=== PATIENT | male | born 1945 | race Caucasian/White ===

== ENCOUNTER 2020-07-17 17:55 | Inpatient (IN) | payer OTHER ==
--- NOTE | 2020-07-17 18:48 | RAD REPORT ---
EXAM DESCRIPTION: RAD - Chest Single View - 07/17/2020 6:34 pm CLINICAL HISTORY: CHEST PAIN Chest pain. COMPARISON: Chest Pa And Lat (2 Views) dated 10/28/2019; Chest Single View dated 12/02/2015 FINDINGS: Portable technique limits examination quality. The lungs are grossly clear. The heart is normal in size. No displaced fractures.Left humeral hardwar e noted. IMPRESSION: No acute intrathoracic process suspected.
[2020-07-17 18:56] LABS: Absolute Lymphocytes (CBC) 2.1 K/uL (0.7-4.9); Basophils % 0.6 % (0-1.3); Hematocrit 31.3 % (39.6-49.0); Lymphocytes % 22.9 % (15.3-44.8); MPV 8.1 fL (7.6-11.3); RBC Red Blood Cell Count 3.38 M/uL (4.33-5.43)
[2020-07-17] MEDS ORDERED: LORazepam 2 MG/ML VIAL ONE (18:59)
[2020-07-17] MEDS ORDERED: ACETAMINOPHEN 500 MG TAB ONE (19:00)
[2020-07-17] MEDS ORDERED: ASPIRIN 81 MG CHEWABLE TABLET ONE (19:00)
[2020-07-17] MEDS ORDERED: NITROGLYCERIN 0.4 MG/TAB SL ONE (19:01)
[2020-07-17] MEDS ORDERED: METOPROLOL TARTRATE 5 MG/5 ML INJ IV ONE (19:01)
[2020-07-17 19:06] LABS: Protime INR 1.09
[2020-07-17 19:22] LABS: ALT/SGPT 31 U/L (12-78); AST/SGOT 20 U/L (15-37); Albumin 3.7 g/dL (3.4-5.0); Alkaline Phosphatase 77 U/L (45-117); BUN Blood Urea Nitrogen 16 mg/dL (7-18); Bicarbonate 22 mmol/L (21-32); Bilirubin Direct < 0.1 mg/dL (0-0.2); Bilirubin Total 0.4 mg/dL (0.2-1.0); Glucose Level 159 mg/dL (74-106); Magnesium 1.7 mg/dL (1.8-2.4); NT PRO-BNP 88 pg/mL (<125); Potassium 3.6 mmol/L (3.5-5.1); Protein, Total 6.7 g/dL (6.4-8.2); Sodium Level 138 mmol/L (136-145); Troponin (Emerg Dept Use Only) < 0.02 ng/mL (0.0-0.045)
--- NOTE | 2020-07-17 19:47 | EDPHYS ---
Physician Documentation [facility] Name: Martin Santa Age: 74 yrs Sex: Male : 1945 Arrival Date: 07/17/2020 Time: 17:56 Bed 15 Private MD: Tracy Mitchell R ED Physician Bhavik Coe HPI: 07/17 18:08 This 74 yrs old Male presents to ER via Wheelchair with complaints of Chest pm1 Pain. 18:08 The patient or guardian reports chest pain that is located primarily in the mid-sternal pm1 area. Onset: 3 day(s) ago. The pain does not radiate. Associated signs and symptoms: Pertinent positives: shortness of breath. The chest pain is described as a heaviness. Duration: The patient or guardian reports a single episode, that is still ongoing, and worsening, constant chest pain for the past 3-4 days and worse the past 2-3 hours. Was 4/10 the past few days and is now 8/10. Modifying factors: The symptoms are alleviated by nothing. Patient took a nitro x 1 at home without any relief. the symptoms are aggravated by nothing. Severity of pain: in the emergency department the pain is actually worse is a 8 / 10. The patient has not recently seen a physician, the patient's primary care provider is Dr. Spivey, Orderly Dr Soni. Historical: - Allergies: 18:06 PENICILLINS; ll1 - PMHx: 18:06 Hypertension; High Cholesterol; Diabetes - NIDDM; ll1 - Immunization history:: Flu vaccine is up to date. - Social history:: Smoking status: Patient denies any tobacco usage or history of. ROS: 18:08 Constitutional: Negative for fever, chills, and weight loss. pm1 18:08 Abdomen/GI: Negative for abdominal pain, nausea, vomiting, diarrhea, and constipation, Back: Negative for injury and pain, MS/Extremity: Negative for injury and deformity, Skin: Negative for injury, rash, and discoloration. 18:08 Cardiovascular: Positive for chest pain, Negative for edema, palpitations. 18:08 Respiratory: Positive for shortness of breath, Negative for cough. 18:08 Neuro: Positive for headache, post taking nitro. Exam: 18:08 Constitutional: This is a well developed, well nourished patient who is awake, alert, pm1 and in no acute distress. Head/Face: Normocephalic, atraumatic. 18:08 Back: No spinal tenderness. No costovertebral tenderness. Full range of motion. Skin: Warm, dry with normal turgor. Normal color with no rashes, no lesions, and no evidence of cellulitis. MS/ Extremity: Pulses equal, no cyanosis. Neurovascular intact. Full, normal range of motion. 18:08 Cardiovascular: Exam negative for acute changes, Rate: normal, Rhythm: regular, Pulses: no pulse deficits are appreciated, Edema: is not appreciated. 18:08 Respiratory: Exam negative for acute changes, respiratory distress, shortness of breath, Breath sounds: are clear throughout. 18:08 Abdomen/GI: Exam negative for acute changes, Inspection: abdomen appears normal, Palpation: abdomen is soft and non-tender, in all quadrants. 18:08 Neuro: Exam negative for acute changes, Orientation: is normal, Mentation: is normal, Motor: is normal, moves all fours. Vital Signs: 18:04 BP 121 / 77; Pulse 100; Resp 20; Temp 97.8; Pulse Ox 100% on R/A; Weight 97.52 kg; ll1 Height 5 ft. 10 in. (177.80 cm); Pain 9/10; 19:00 BP 97 / 63; Pulse 81; Resp 16; Pulse Ox 100% on R/A; jb4 20:00 BP 99 / 55; Pulse 77; Resp 12; Pulse Ox 100% on R/A; jb4 21:00 BP 112 / 51; Pulse 79; Resp 16; Pulse Ox 100% on R/A; jb4 21:30 BP 118 / 60; Pulse 79; Resp 18; Pulse Ox 97% on R/A; jb4 18:04 Body Mass Index 30.85 (97.52 kg, 177.80 cm) ll1 MDM: 18:07 Patient medically screened. pm1 18:15 Data reviewed: vital signs. pm1 19:25 Counseling: I had a detailed discussion with the patient and/or guardian regarding: the pm1 historical points, exam findings, and any diagnostic results supporting the discharge/admit diagnosis, lab results, radiology results, the need for further work-up and treatment in the hospital. 19:46 Physician consultation: Eliud SIMEON was called at 19:46, was contacted at 19:46, pm1 regarding admission, patient's condition, and will see patient in ED, shortly. 07/17 18:08 Order name: Basic Metabolic Panel; Complete Time: 19:24 pm1 07/17 18:08 Order name: CBC with Diff; Complete Time: 19:19 pm1 07/17 18:08 Order name: LFT's; Complete Time: 19:24 pm1 07/17 18:08 Order name: Magnesium; Complete Time: 19:24 pm1 07/17 18:08 Order name: NT PRO-BNP; Complete Time: 19:24 pm1 07/17 18:08 Order name: PT-INR; Complete Time: 19:19 pm1 07/17 18:08 Order name: Troponin (emerg Dept Use Only); Complete Time: 19:24 pm1 07/17 18:08 Order name: XRAY Chest (1 view); Complete Time: 18:52 pm1 07/17 21:09 Order name: SARS-COV-2 RT PCR EDMS 07/17 18:08 Order name: EKG; Complete Time: 18:09 pm1 07/17 18:08 Order name: Cardiac monitoring; Complete Time: 18:25 pm1 07/17 18:08 Order name: EKG - Nurse/Tech; Complete Time: 18:25 pm1 07/17 18:08 Order name: IV Saline Lock; Complete Time: 19:06 pm1 07/17 18:08 Order name: Labs collected and sent; Complete Time: 19:06 pm1 07/17 18:08 Order name: O2 Per Protocol; Complete Time: 19:06 pm1 07/17 18:08 Order name: O2 Sat Monitoring; Complete Time: 19:06 pm1 07/17 20:32 Order name: CONS Physician Consult EDMS Administered Medications: 18:43 Drug: Ativan 0.5 mg Route: IVP; Site: right antecubital; hb 19:08 Follow up: Response: No adverse reaction hb 18:48 Drug: Nitroglycerin 0.4 mg Route: Sublingual; hb 18:48 Drug: Aspirin Chewable Tablet 324 mg Route: PO; hb 18:48 Drug: Tylenol 1000 mg Route: PO; hb 18:48 Drug: Metoprolol 5 mg Route: IVP; Site: right antecubital; hb 20:19 Not Given (Patient Refused): morphine 4 mg IVP once; RASS on ADMIN: Combtv4, Very jb4 Agttd3, Agttd2, Rstlss1, AlertClm0, Drwsy-1, Lt Sdtn-2, Mod Sdtn-3, Dp Sdtn-4, UnArsble-5 20:19 Not Given (Patient Refused): Zofran (Ondansetron) 4 mg IVP once; over 2 minutes jb4 Disposition: 07/18 06:45 Co-signature as Attending Physician, Bhavik Coe MD I agree with the assessment and dexter plan of care. Disposition: 07/17/20 19:46 Hospitalization ordered by Michael Apple for Observation. Preliminary diagnosis is Chest pain, unspecified. - Bed requested for Telemetry/MedSurg (observation). - Status is Observation. jb4 - Condition is Stable. - Problem is new. - Symptoms have improved. Signatures: Dispatcher [employer] EDWA Bhavik Coe MD MD cha Garcia, Cindy, RN RN cg Royce Kay, ASSEMBLY DETAILER ASSEMBLY DETAILER pm1 Ruby eVra RN RN Martin Smith RN RN jb4 Jones Jaquez RN RN ll1 Corrections: (The following items were deleted from the chart) 03 20:22 19:56 CORONAVIRUS+ ordered. [facility] EDWA 21:24 19:46 Hospitalization Ordered by Michael Apple for Observation. Preliminary diagnosis cg is Chest pain, unspecified. Bed requested for Telemetry/MedSurg (observation). Status is Observation. Condition is Stable. Problem is new. Symptoms have improved. pm1 22:09 21:24 07/17/2020 19:46 Hospitalization Ordered by Michael Apple for Observation. jb4 Preliminary diagnosis is Chest pain, unspecified. Bed requested for Telemetry/MedSurg (observation). Status is Observation. Condition is Stable. Problem is new. Symptoms have improved. cg
--- NOTE | 2020-07-17 19:47 | ER ---
Nurse's Notes [facility] Name: Martin Santa Age: 74 yrs Sex: Male : 1945 Arrival Date: 07/17/2020 Time: 17:56 Bed 15 Private MD: Tracy Mitchell R Diagnosis: Chest pain, unspecified Presentation: 07/17 18:04 Chief complaint: Patient states: CP with SOB for 3-4 days. + dizziness. Coronavirus ll1 screen: Client denies travel out of the [place] in the last 14 days. At this time, the client does not indicate any symptoms associated with coronavirus-19. Ebola Screen: Patient denies travel to an Ebola-affected area in the 21 days before illness onset. Initial Sepsis Screen: Does the patient meet any 2 criteria? HR > 90 bpm. No. Patient's initial sepsis screen is negative. Does the patient have a suspected source of infection? No. Patient's initial sepsis screen is negative. Risk Assessment: Do you want to hurt yourself or someone else? Patient reports no desire to harm self or others. Onset of symptoms was July 13, 2020. 18:04 Method Of Arrival: Wheelchair ll1 18:04 Acuity: ODILIA 3 ll1 Historical: - Allergies: 18:06 PENICILLINS; ll1 - PMHx: 18:06 Hypertension; High Cholesterol; Diabetes - NIDDM; ll1 - Immunization history:: Flu vaccine is up to date. - Social history:: Smoking status: Patient denies any tobacco usage or history of. Screenin:32 Abuse screen: Denies threats or abuse. Denies injuries from another. Nutritional hb screening: No deficits noted. Tuberculosis screening: No symptoms or risk factors identified. Fall Risk None identified. Assessment: 18:32 General: Appears in no apparent distress. uncomfortable, Behavior is cooperative, hb anxious, restless. Pain: Pain currently is 8 out of 10 on a pain scale. Neuro: Level of Consciousness is awake, alert, obeys commands, Oriented to person, place, time, situation. Cardiovascular: Reports chest pain, Capillary refill < 3 seconds Patient's skin is warm and dry. Respiratory: Reports shortness of breath at rest Respiratory effort is even, unlabored, Respiratory pattern is regular, symmetrical. GI: No signs and/or symptoms were reported involving the gastrointestinal system. : No signs and/or symptoms were reported regarding the genitourinary system. EENT: No signs and/or symptoms were reported regarding the EENT system. Derm: Skin is pink, warm \T\ dry. Musculoskeletal: No signs and/or symptoms reported regarding the musculoskeletal system. 19:00 Reassessment: Patient appears in no apparent distress at this time. Patient and/or jb4 family updated on plan of care and expected duration. Pain level reassessed. Patient is alert, oriented x 3, equal unlabored respirations, skin warm/dry/pink. Patient states feeling better. 20:00 Reassessment: Patient appears in no apparent distress at this time. Patient and/or jb4 family updated on plan of care and expected duration. Pain level reassessed. Patient is alert, oriented x 3, equal unlabored respirations, skin warm/dry/pink. 21:00 Reassessment: Patient appears in no apparent distress at this time. Patient and/or jb4 family updated on plan of care and expected duration. Pain level reassessed. Patient is alert, oriented x 3, equal unlabored respirations, skin warm/dry/pink. 21:36 Reassessment: Patient appears in no apparent distress at this time. Patient and/or jb4 family updated on plan of care and expected duration. Pain level reassessed. Patient is alert, oriented x 3, equal unlabored respirations, skin warm/dry/pink. Vital Signs: 18:04 BP 121 / 77; Pulse 100; Resp 20; Temp 97.8; Pulse Ox 100% on R/A; Weight 97.52 kg; ll1 Height 5 ft. 10 in. (177.80 cm); Pain 9/10; 19:00 BP 97 / 63; Pulse 81; Resp 16; Pulse Ox 100% on R/A; jb4 20:00 BP 99 / 55; Pulse 77; Resp 12; Pulse Ox 100% on R/A; jb4 21:00 BP 112 / 51; Pulse 79; Resp 16; Pulse Ox 100% on R/A; jb4 21:30 BP 118 / 60; Pulse 79; Resp 18; Pulse Ox 97% on R/A; jb4 18:04 Body Mass Index 30.85 (97.52 kg, 177.80 cm) 1 ED Course: 17:56 Patient arrived in ED. mr 17:56 Tracy Mitchell MD is Private Physician. mr 18:03 Royce Kay [facility]. pm1 18:03 Bhavik Coe MD is Attending Physician. pm1 18:05 Triage completed. ll1 18:06 Arm band placed on Patient placed in an exam room, on a stretcher. ll1 18:23 Patient has correct armband on for positive identification. Bed in low position. Call mh5 light in reach. Side rails up X 1. Pillow given. international account representative on. Pulse ox on. NIBP on. 18:24 EKG done, by ED staff, reviewed by Royce Kay NP. mh5 18:32 Patient maintains SpO2 saturation greater than 95% on room air. hb 18:34 XRAY Chest (1 view) In Process Unspecified. EDMS 18:35 Ruby Vera, RN is Primary Nurse. hb 18:46 Inserted saline lock: 20 gauge in right antecubital area, using aseptic technique. hb Blood collected. 19:46 Michael Apple is Hospitalizing Provider. pm1 22:08 No provider procedures requiring assistance completed. Patient admitted, IV remains in jb4 place. Administered Medications: 18:43 Drug: Ativan 0.5 mg Route: IVP; Site: right antecubital; hb 19:08 Follow up: Response: No adverse reaction hb 18:48 Drug: Nitroglycerin 0.4 mg Route: Sublingual; hb 18:48 Drug: Aspirin Chewable Tablet 324 mg Route: PO; hb 18:48 Drug: Tylenol 1000 mg Route: PO; hb 18:48 Drug: Metoprolol 5 mg Route: IVP; Site: right antecubital; hb 20:19 Not Given (Patient Refused): morphine 4 mg IVP once; RASS on ADMIN: Combtv4, Very jb4 Agttd3, Agttd2, Rstlss1, AlertClm0, Drwsy-1, Lt Sdtn-2, Mod Sdtn-3, Dp Sdtn-4, UnArsble-5 20:19 Not Given (Patient Refused): Zofran (Ondansetron) 4 mg IVP once; over 2 minutes jb4 Outcome: 19:46 Decision to Hospitalize by Provider. pm1 22:08 Admitted to Tele accompanied by teena via stretcher, room 428, with chart, Report jb4 called to HAILEY Le 22:08 Condition: stable 22:08 Discharge instructions given to patient, Instructed on the need for admit, Demonstrated understanding of instructions. 22:09 Patient left the ED. [email or web address] Signatures: Dispatcher [employer] Barb ChavezRoyce, BRAIDING MACHINE OPERATOR BRAIDING MACHINE OPERATOR pm1 Ruby Vera RN RN Martin Smith RN RN jb4 Abby Veronica [facility] Jones Jaquez, HAILEY RN ll1 Corrections: (The following items were deleted from the chart) 22:02 21:30 BP 118 / 60; Pulse 79bpm; Resp 18bpm; Pulse Ox 79% RA; jb4 jb4
--- NOTE | 2020-07-17 21:59 | P.HP ---
Certification for Inpatient Patient admitted to: Observation With expected LOS: <2 Midnights Patient will require the following post-hospital care: None Practitioner: I am a practitioner with admitting privileges, knowledge of patient current condition, hospital course, and medical plan of care. Services: Services provided to patient in accordance with Admission requirements found in Title 42 Section 412.3 of the Code of Federal Regulations <Eliud Garcia - Last Filed: 07/18/20 01:47> Patient History Date of Service: 07/18/20 Primary Care Provider: Dr. Mckeon Reason for admission: chest pain rule out History of Present Illness: Mr. Santa is a 74 yo male with DM, HTN, HLD, and asthma here today for 9/10 chest pain with exertion. Chest pain, described as 'all over heavy feeling', started at rest around 3pm and worsened while running errands. Chest pain was not relieved with rest. He reports palpitations, SOB, and numbness. At bedside, patient had dizziness and tunnel vision with deep breathing during exam that improved when resting. He reports he has had dizziness like this for the past few weeks when he gets up from a seated position. He denies nausea and vomiting. He said he last had chest pain like this 5-6 years ago. He had a scheduled cardiology appointment with Dr. Soni next week. Initial troponin negative, EKG without findings. CXR normal. Home medications list reviewed: No - Past Medical/Surgical History Has patient received pneumonia vaccine in the past: No Diabetic: Yes -: Diabetes-NIIDM -: hypertension -: high cholesterol -: asthma -: h/o of hemorrhoids -: hernia repair -: reconstructive surgery left humerus - Social History Smoking Status: Never smoker Alcohol use: No CD- Drugs: No Caffeine use: Yes Place of Residence: Home <Eliud Garcia - Last Filed: 07/18/20 01:47> Date of Service: 07/18/20 <kimberli olson - Last Filed: 07/18/20 16:51> Allergies Penicillins Allergy (Verified 07/18/20 00:42) Hives/Rash Home Medications: Pravastatin [Pravachol*] 60 mg PO BEDTIME 04/21/14 Albuterol Inhaler [Ventolin Inhaler] 2 puff IH Q6H PRN 07/18/20 Allopurinol 200 mg PO DAILY 07/18/20 hydroCHLOROthiazide [Hydrochlorothiazide*] 12.5 mg PO DAILY 07/18/20 Review of Systems General: Unremarkable Eyes: Unremarkable ENT: Unremarkable Respiratory: Shortness of Breath, SOB with Excertion, As per HPI Cardiovascular: Chest Pain, Palpitations, Light Headedness, As per HPI Gastrointestinal: Unremarkable Genitourinary: Unremarkable Musculoskeletal: Unremarkable Integumentary: Unremarkable Neurological: Numbness, As per HPI Lymphatics: Unremarkable <Eliud Garcia Preston - Last Filed: 07/18/20 01:47> Physical Examination - Vital Signs Temperature: 97.8 F Blood Pressure: 121/77 Pulse: 100 Respirations: 20 Pulse Ox (%): 100 - Physical Exam General: Alert, In no apparent distress, Oriented x3, Cooperative HEENT: Atraumatic, Normocephalic, PERRLA, Mucous membr. moist/pink, EOMI, Sclerae nonicteric Neck: Supple, 2+ carotid pulse no bruit, JVD not distended, No Thyromegaly, No LAD Respiratory: Clear to auscultation bilaterally, Normal air movement, Other (dizziness and tunnel vision with deep respirations, resolved with rest) Cardiovascular: No edema, Normal pulses, Regular rate/rhythm, Normal S1 S2, No gallops, No rubs, No murmurs Capillary refill: <2 Seconds Gastrointestinal: Normal bowel sounds, Soft and benign, Non-distended, No ascites, No tenderness, No masses, No rebound, No guarding Musculoskeletal: No clubbing, No swelling, No contractures, No erythema, No tenderness, No warmth Integumentary: No rashes, No breakdown, No significant lesion, No tenderness/swelling, No erythema, No warmth, No cyanosis Neurological: Normal speech, Normal strength at 5/5 x4 extr, Normal tone, Sensation intact, Cranial nerves 3-12 intact, Normal affect Lymphatics: No axilla or inguinal lymphadenopathy - Studies Laboratory Data (last 24 hrs) 07/17/20 18:39: PT 12.5, INR 1.09 07/17/20 18:39: WBC 9.10, Hgb 10.7 L, Hct 31.3 L, Plt Count 323 07/17/20 18:39: Sodium 138, Potassium 3.6, BUN 16, Creatinine 1.16, Glucose 159 H, Magnesium 1.7 L, Total Bilirubin 0.4, AST 20, ALT 31, Alkaline Phosphatase 77 <Eliud Garcia - Last Filed: 07/18/20 01:47> - Studies Laboratory Data (last 24 hrs) 07/18/20 12:07: Troponin I < 0.02 07/18/20 03:31: Troponin I < 0.02 07/17/20 18:39: PT 12.5, INR 1.09 07/17/20 18:39: WBC 9.10, Hgb 10.7 L, Hct 31.3 L, Plt Count 323 07/17/20 18:39: Sodium 138, Potassium 3.6, BUN 16, Creatinine 1.16, Glucose 159 H, Magnesium 1.7 L, Total Bilirubin 0.4, AST 20, ALT 31, Alkaline Phosphatase 77 <kimberli olson - Last Filed: 07/18/20 16:51> Assessment and Plan - Problems (Diagnosis) (1) Chest pain at rest Onset Date: 12/04/15 Current Visit: No Status: Acute Plan: received ASA, NTG and metoprolol in the ER chest pain now controlled cardiology consult placed PRN nitroglycerin and morphine as needed will trend troponins and EKG (2) Diabetes mellitus Onset Date: 12/04/15 Current Visit: No Status: Chronic Plan: mild sliding scale insulin protocol with blood glucose checks. continue to monitor. 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 (4) HTN (hypertension) Current Visit: No Status: Chronic Plan: blood pressure currently well controlled. will reconcile home medications. patient had episode of dizziness and lightheadedness during exam, will obtain orthostatic vitals and continue to monitor. fall precautions placed. Qualifiers: Hypertension type: essential hypertension Qualified Code(s): I10 - Essential (primary) hypertension Discharge Plan: Home Plan to discharge in: 24 Hours - Advance Directives Does patient have a Living Will: No Does patient have a Durable POA for Healthcare: No - Code Status/Comfort Care Code Status Assessed: Yes (full code ) Critical Care: No Time Spent Managing Pts Care (In Minutes): 70 <Eliud Garcia - Last Filed: 07/18/20 01:47> Physician Review: Patient Assessed, Agree with Above Assessment and Plan Physician Review Additional Text: Chest pain. Significant cardiac risk factors. Plan: Trend troponin Cardiology consult. <kimberli olson - Last Filed: 07/18/20 16:51>
[2020-07-17] MEDS: INSULIN -REGULAR HUMAN 50 UNIT/0.5 ML ML SQ SCH (22:12)
[2020-07-17] MEDS ORDERED: NA CHLORIDE 0.9% 250 ML IV ONE (22:12)
[2020-07-17] MEDS ORDERED: ONDANSETRON 4 MG/2 ML VIAL IV PRN (22:12)
[2020-07-17] MEDS ORDERED: NITROGLYCERIN 0.4 MG/TAB SL PRN (22:12)
[2020-07-17] MEDS ORDERED: ACETAMINOPHEN 500 MG TAB PO PRN (22:12)
[2020-07-17] MEDS ORDERED: MORPHINE 2 MG/ML SYR IV PRN (22:12)
[2020-07-17 22:57] VITALS: BMI 30.5
[2020-07-18 06:05] LABS: Urine Appearance CLEAR; Urine Bilirubin NEGATIVE (NEG); Urine Blood NEGATIVE (NEG); Urine Color YELLOW; Urine Glucose NEGATIVE (NEG); Urine Protein TRACE (NEG); Urine Specific Gravity 1.025 (1.005-1.030); Urine pH 7.5 (5.0-7.0)
[2020-07-18 06:06] LABS: Urine Microscopic Reflex ORDER UMIC
[2020-07-18 06:13] LABS: Urine Bacteria <20 /HPF (NONE SEEN); Urine RBC <5 /HPF (NONE SEEN)
[2020-07-18] MEDS: INSULIN -REGULAR HUMAN 50 UNIT/0.5 ML ML SQ SCH ×4 (07:30→21:00)
[2020-07-18] MEDS: hydroCHLOROthiazide 12.5 MG CAP PO SCH (08:18)
[2020-07-18] MEDS: allopurinoL 100 MG TAB PO SCH (08:18)
[2020-07-18] MEDS ORDERED: ENOXAPARIN 40 MG/0.4 ML SQ SCH (09:00)
--- NOTE | 2020-07-18 11:42 | CON ---
Date of Consultation: 07/18/2020 Reason For Consultation: Unstable angina. History Of Present Illness: Mr. Santa is a 74-year-old white male. Has a history of gout, diabetes , hypertension, dyslipidemia. Has had negative cardiac workup in the past as well as 2016, but he co mes in with nausea, palpitation, shortness of breath, chest pain radiating to the back and both arms with exertion. He denied PND, orthopnea, pedal edema. Has had palpitations, but no syncope. Denied any fever or chills. He has ruled out for an [place], but continues to have symptoms with minimal exerti on. Past Medical History: As stated above. Allergies: HE IS ALLERGIC TO PENICILLIN. Review of Systems: Negative. Social History: Negative. Family History: Positive for heart disease. Medications: At home include allopurinol, inhalers, hydrochlorothiazide, and Pravachol. Physical Examination: General: Appeared to be in mild distress. Sinus rhythm with occasional PACs. Vital Signs: His vital signs were otherwise stable. He was afebrile. HEENT: Negative. Neck: Supple with no bruit. Chest: Clear to auscultation and percussion. Cardiac: Revealed a regular rhythm and rate. No murmurs, gallops, or rubs. Abdomen: Benign. Extremities: Revealed no clubbing, cyanosis, or edema. Diagnostic Data: Fairly unremarkable. Impression And Plan: The patient with hypertension, diabetes, dyslipidemia, symptoms of chest pain c onsistent with unstable angina. I am concerned that his palpitations may be secondary to atrial fibr illation. We may have to investigate that later. I think he needs to have a heart catheterization t o define his coronary anatomy. We will see what that shows before making any further decisions. Dep ending what the echo shows, he may need an event monitor and he may need an echocardiogram on his own . I would hold his Lovenox for tonight and plan for a heart catheterization on 07/19/2020. The brian ent understands the risks and the benefits of the procedure and he agreed to proceed. DEBRA/ANTONIO Voice ID: [id number] Report ID: [id number]
[2020-07-18] MEDS: ALBUTEROL INHALER 60 PUFF/8 GM IH PRN ×2 (12:39→19:59)
--- NOTE | 2020-07-18 16:56 | P.PN ---
Subjective Date of Service: 07/18/20 Primary Care Provider: Dr. Mckeon Chief Complaint: chest pain rule out Patient complaining of intermittent chest pressure. Troponin trended negative. Physical Examination - Vital Signs Temperature: 98.1 F Blood Pressure: 135/69 Pulse: 97 Respirations: 18 Pulse Ox (%): 99 - Physical Exam General: Alert, In no apparent distress, Oriented x3 HEENT: Mucous membr. moist/pink Neck: Supple, JVD not distended Respiratory: Clear to auscultation bilaterally, Normal air movement Cardiovascular: No edema, Regular rate/rhythm, Normal S1 S2 Gastrointestinal: Normal bowel sounds, Soft and benign, Non-distended, No tenderness Musculoskeletal: No swelling, No tenderness Integumentary: No rashes Neurological: Normal strength at 5/5 x4 extr, Cranial nerves 3-12 intact - Studies Laboratory Data (last 24 hrs) 07/18/20 12:07: Troponin I < 0.02 07/18/20 03:31: Troponin I < 0.02 07/17/20 18:39: PT 12.5, INR 1.09 07/17/20 18:39: WBC 9.10, Hgb 10.7 L, Hct 31.3 L, Plt Count 323 07/17/20 18:39: Sodium 138, Potassium 3.6, BUN 16, Creatinine 1.16, Glucose 159 H, Magnesium 1.7 L, Total Bilirubin 0.4, AST 20, ALT 31, Alkaline Phosphatase 77 Assessment And Plan - Current Problems (Diagnosis) (1) Angina at rest Current Visit: Yes Status: Acute (2) Diabetes mellitus Onset Date: 12/04/15 Current Visit: No Status: Chronic Qualifiers: Diabetes mellitus type: type 2 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 Patient with angina. Troponin negative. He is scheduled for cardiac catheterization tomorrow. Aspirin, Plavix, metoprolol, lipid. NTG p.r.n. Insulin sliding scale for glucose management
[2020-07-18] MEDS: METOPROLOL TAR 25 MG TAB PO SCH (18:07)
[2020-07-18] MEDS ORDERED: ATORVASTATIN 10 MG TAB PO SCH (21:00)
[2020-07-19] MEDS ORDERED: NA CHLORIDE 0.9% 500 ML ONE ×2 (04:49→07:10)
--- NOTE | 2020-07-19 05:04 | EKG ---
Test Date: 2020-07-18 Test Time: 10:46:39 Surgical Rn: HARISH MEASUREMENT RESULTS: Intervals: Rate: 89 UT: 142 QRSD: 90 QT: 370 QTc: 450 [place]: P: 64 UT: 142 QRS: 54 T: 59 INTERPRETIVE STATEMENTS: Normal sinus rhythm Normal ECG Compared to ECG 07/17/2020 18:18:52 ST (T wave) deviation no longer present Prolonged QT interval no longer present Electronically Signed On 07-19-20 05:03:38 DISEASE EDUCATION SPECIALIST by Oscar Soni
--- NOTE | 2020-07-19 05:05 | EKG ---
Test Date: 2020-07-17 Test Time: 18:18:52 Regional Facilities Manager: ERNST MEASUREMENT RESULTS: Intervals: Rate: 97 NV: 128 QRSD: 92 QT: 388 QTc: 492 [place]: P: 36 NV: 128 QRS: 61 T: 61 INTERPRETIVE STATEMENTS: Normal sinus rhythm Nonspecific ST abnormality Prolonged QT Abnormal ECG Compared to ECG 12/03/2015 05:47:30 ST (T wave) deviation now present Prolonged QT interval now present Sinus bradycardia no longer present Electronically Signed On 07-19-20 05:03:48 SINGLE WIRE SAW OPERATOR by Oscar Soni
[2020-07-19] MEDS: METOPROLOL TAR 25 MG TAB PO SCH (05:51)
[2020-07-19 07:04] LABS: Magnesium 1.8 mg/dL (1.8-2.4); Potassium 3.5 mmol/L (3.5-5.1)
[2020-07-19] MEDS ORDERED: HEPA 1000U/500MLS 1,000 UNIT/500 ML BAG IV ONE (07:09)
[2020-07-19] MEDS ORDERED: LIDOCAINE 1% 20 ML MDV ONE (07:09)
[2020-07-19] MEDS: INSULIN -REGULAR HUMAN 50 UNIT/0.5 ML ML SQ SCH ×2 (07:30→11:30)
[2020-07-19] MEDS ORDERED: MIDAZOLAM HCL 2 MG/2 ML INJ ONE ×2 (07:39→07:46)
[2020-07-19] MEDS ORDERED: NITROGLYCERIN 100 MCG/ML SYR (for cath lab use only) IV ONE (07:40)
[2020-07-19] MEDS ORDERED: FENTANYL CITR 100 MCG/2 ML ONE (07:40)
[2020-07-19] MEDS ORDERED: NITROGLYCERIN/D5W 0 MG/0 ML BTL IV ONE (07:40)
[2020-07-19] MEDS ORDERED: ATROPINE SULF 1 MG/10 ML SYR IV ONE (07:40)
[2020-07-19] MEDS ORDERED: NA CHLORIDE 0.9% 0 ML ONE (07:40)
[2020-07-19 08:37] VITALS: O2SAT 100
[2020-07-19] MEDS ORDERED: ASPIRIN EC 81 MG TAB PO SCH (09:00)
[2020-07-19] MEDS: allopurinoL 100 MG TAB PO SCH (09:00)
[2020-07-19] MEDS ORDERED: CLOPIDOGREL 75 MG TABLET PO SCH (09:00)
--- NOTE | 2020-07-19 09:31 | OP ---
Date of Procedure: 07/19/2020 Surgeon: Oscar Soni MD Director Of Radiology: Mr. Clark. The patient will remain in the hospital for 2 hours of bedrest. We will continue his home medication . I will be happy to see him in the office in the next week or 2. I will discuss the case further w franklin Apple. Procedures: Left heart catheterization, selective coronary arteriogram, left ventriculogram, and end -diastolic pressure measurement. Indication: Unstable angina, chest pain, palpitations. Procedure In Detail: Mr. Santa was admitted on 07/18/[address] Apple's service for chest pain, t hought to be related to unstable angina, brought to the dairy laboratory technician today on 07/19/2020, prepped and dra vega in the routine sterile fashion. Given Versed for sedation. A 6-Indonesian sheath was introduced in the right common femoral artery successfully using the Seldinger technique and 10 cc of Xylocaine. A ngiography there was normal. Angio-Seal was used to close the case. Quinten catheter left and right were used to cannulate the left main and right main respectively. He had a normal left main, normal LAD, normal diagonals. There was a 40% ostial circumflex stenosis, normal obtuse marginal. A JR4 c atheter was used to cannulate the RCA that was normal, he was right dominant. The JR4 catheter was i ntroduced in the left ventricle. LV-gram was done showing ejection fraction of 65%, left ventricular end-diastolic pressure of 8 mmHg. There were no complications. Blood loss was 5 mL. The patient t olerated the procedure well. Postoperative Diagnosis: Mild coronary artery disease. Plan: Plan is for medical therapy. Anesthesia: Total conscious sedation was 45 minutes. NB/MODL Voice ID: [id number] Report ID: [id number]
[2020-07-19] MEDS: hydroCHLOROthiazide 12.5 MG CAP PO SCH (10:05)
--- NOTE | 2020-07-19 10:19 | P.DS ---
Admission Date: 07/18/20 Discharge Date: 07/19/20 Primary Care Provider: Dr. Mckeon Disposition: ROUTINE DISCHARGE Discharge Condition: FAIR Reason for Admission: chest pain rule out Consultations: Cardiology - Problems (1) Angina at rest Current Visit: Yes Status: Acute (2) Diabetes mellitus Onset Date: 12/04/15 Current Visit: No Status: Chronic Qualifiers: Diabetes mellitus type: type 2 Diabetes mellitus complication status: with circulatory complication (3) Dyslipidemia Current Visit: No Status: Chronic (4) HTN (hypertension) Current Visit: No Status: Chronic Qualifiers: Hypertension type: essential hypertension Qualified Code(s): I10 - Essential (primary) hypertension Brief History of Present Illness: 74-year-old man with a history of diabetes, and hypertension, asthma and hyperlipidemia presented to the emergency department with a complaint of chest pain worse with exertion, which progressed to chest pain at rest and associated with palpitation and shortness of breath. Patient also reported dizziness. He had a scheduled appointment Dr. Soni for the next week. His initial troponin was negative, EKG did not show any significant ischemic findings, chest x-ray showed no active disease. The patient was hospitalized for ACS rule out. Hospital Course: Troponin trended negative. Patient was seen in consultation by cardiology-Dr. Soni will performed cardiac catheterization. Patient noted to have mild coronary artery disease during cardiac catheterization. Patient placed on aspirin and metoprolol. He is on statins. Patient cleared for discharge per cardiology. Vital Signs/Physical Exam: Temp Pulse Resp BP Pulse Ox 98.0 F 69 17 135/73 100 07/19/20 08:00 07/19/20 10:05 07/19/20 08:25 07/19/20 10:05 07/19/20 08:00 General: Alert, In no apparent distress, Oriented x3 HEENT: Mucous membr. moist/pink Neck: Supple, No Thyromegaly Respiratory: Clear to auscultation bilaterally, Normal air movement Cardiovascular: No edema, Regular rate/rhythm, Normal S1 S2 Gastrointestinal: Soft and benign, Non-distended Musculoskeletal: No swelling, No tenderness Integumentary: No rashes, No erythema Neurological: Normal strength at 5/5 x4 extr, Cranial nerves 3-12 intact Laboratory Data at Discharge: WBC 9.10 K/uL (4.3-10.9) 07/17/20 18:39 Hgb 10.7 g/dL (13.6-17.9) L 07/17/20 18:39 Hct 31.3 % (39.6-49.0) L 07/17/20 18:39 Plt Count 323 K/uL (152-406) 07/17/20 18:39 PT 12.5 SECONDS (9.5-12.5) 07/17/20 18:39 INR 1.09 07/17/20 18:39 Sodium 137 mmol/L (136-145) 07/19/20 06:03 Potassium 3.5 mmol/L (3.5-5.1) 07/19/20 06:03 BUN 12 mg/dL (7-18) 07/19/20 06:03 Creatinine 0.90 mg/dL (0.55-1.3) 07/19/20 06:03 Glucose 153 mg/dL (74-106) H 07/19/20 06:03 Magnesium 1.8 mg/dL (1.8-2.4) 07/19/20 06:03 Total Bilirubin 0.4 mg/dL (0.2-1.0) 07/17/20 18:39 AST 20 U/L (15-37) 07/17/20 18:39 ALT 31 U/L (12-78) 07/17/20 18:39 Alkaline Phosphatase 77 U/L (45-117) 07/17/20 18:39 Troponin I Cancelled 07/18/20 19:31 Home Medications: Pravastatin [Pravachol*] 60 mg PO BEDTIME 04/21/14 Albuterol Inhaler [Ventolin Inhaler*] 2 puff IH Q6H PRN 07/18/20 Allopurinol 200 mg PO DAILY 07/18/20 hydroCHLOROthiazide [Hydrochlorothiazide*] 12.5 mg PO DAILY 07/18/20 Aspirin [Aspirin EC] 81 mg PO DAILY #30 tablet. 07/19/20 Metoprolol Tartrate [Lopressor*] 12.5 mg PO BID 6AM 6PM #30 tab 07/19/20 Nitroglycerin [Nitrostat*] 0.4 mg SL UD PRN #20 tab 07/19/20 New Medications: Aspirin [Aspirin EC] 81 mg PO DAILY #30 tablet. Metoprolol Tartrate [Lopressor*] 12.5 mg PO BID 6AM 6PM #30 tab Nitroglycerin [Nitrostat*] 0.4 mg SL UD PRN #20 tab PRN Reason: Pain Scale 2-4 (Mild) Followup: Oscar Soni MD [ACTIVE - CAN ADMIT] - (Within 2 weeks. Call for appointment.) Bryce Mitchell MD [Primary Care Provider] - 1-2 Weeks (Call for appointment) Time spent managing pt's care (in minutes): 33
[2020-07-19 12:08] VITALS: BP 153/77; TEMP 98.2
== END 2020-07-19 12:00 | disposition home or self-care (01) | DRG 287 ==
LOC: ER 17:55 → ERHOLD 20:28 → 4TH 22:03 → OBSVTOIN 07-18 12:28
PROVIDERS: ADMIT Internal Medicine; ATTEND Internal Medicine
PROC: 4A023N7 Measurement of Cardiac Sampling and Pressure, Left Heart, Percutaneous Approach (ICD-10-PCS; principal; 2020-07-19)
PROC: B2111ZZ Fluoroscopy of Multiple Coronary Arteries using Low Osmolar Contrast (ICD-10-PCS; 2020-07-19)
PROC: B2151ZZ Fluoroscopy of Left Heart using Low Osmolar Contrast (ICD-10-PCS; 2020-07-19)
DX: I25.110 Atherosclerotic heart disease of native coronary artery with unstable angina pectoris (principal); I10 Essential (primary) hypertension; E78.5 Hyperlipidemia, unspecified; E11.59 Type 2 diabetes mellitus with other circulatory complications; Z79.899 Other long term (current) drug therapy; Z88.0 Allergy status to penicillin; Z79.82 Long term (current) use of aspirin; Z20.822 Contact with and (suspected) exposure to COVID-19
CPT/HCPCS: 36415; 71045; 80048; 80076; 81003; 81015; 82947; 83735; 83880; 84484; 85025; 85610; 93005; 93458; 96374; 96375; 99285; C1760; C1893; G0378; J0583; J1644; J1650; J2250; J2270; J3010; J7040; J7050; U0003

== ENCOUNTER 2020-10-05 10:12 | Emergency (ER) | payer OTHER ==
[2020-10-05 10:50] LABS: Absolute Lymphocytes (CBC) 0.7 K/uL (0.7-4.9); Basophils % 0.4 % (0-1.3); Hematocrit 37.8 % (39.6-49.0); Lymphocytes % 8.9 % (15.3-44.8); MPV 8.1 fL (7.6-11.3); RBC Red Blood Cell Count 4.29 M/uL (4.33-5.43)
[2020-10-05 11:12] LABS: Albumin 3.6 g/dL (3.4-5.0); Bilirubin Direct 0.1 mg/dL (0-0.2); Bilirubin Total 0.6 mg/dL (0.2-1.0); Potassium 3.6 mmol/L (3.5-5.1); Protein, Total 7.5 g/dL (6.4-8.2)
[2020-10-05 11:14] LABS: Urine Blood 3+ (Negative); Urine Glucose Negative (Negative); Urine Protein 3+ (Negative); Urine Specific Gravity 1.025 (1.005-1.030)
[2020-10-05] MEDS ORDERED: NA CHLORIDE 0.9% 500 ML ONE (11:22)
[2020-10-05 11:26] LABS: Urine Appearance TURBID (Clear); Urine Blood 3+ (Negative); Urine Color Red (Yellow); Urine Glucose NEGATIVE (Negative); Urine Protein 3+ (Negative); Urine Specific Gravity >=1.030 (1.005-1.030)
[2020-10-05 11:30] LABS: Urine Bilirubin 2+ (Negative); Urine Microscopic Reflex ORDER UMIC
[2020-10-05 11:38] LABS: Urine Bacteria 20-50 /HPF (NONE SEEN); Urine Mucus 2+ /HPF (NONE SEEN); Urine RBC >50 /HPF (NONE SEEN)
--- NOTE | 2020-10-05 11:56 | RAD REPORT ---
EXAM DESCRIPTION: CTAbdomen Pelvis W Contrast - 10/05/2020 11:46 am CLINICAL HISTORY: Abdominal pain. hematuria;Abd pain COMPARISON: No comparisons TECHNIQUE: Biphasic CT imaging of the abdomen and pelvis was performed with 100 ml non-ionic IV cont rast. All CT scans are performed using dose optimization technique as appropriate and may include automated exposure control or mA/KV adjustment according to patient size. FINDINGS: The lung bases are clear. The liver contains a 10 mm benign cyst. The spleen, pancreas, adrenal glands and kidneys are within n ormal limits. Cholelithiasis. No bowel obstruction, free air, free fluid or abscess. Advanced diverticulosis coli of the sigmoid co peng. The appendix is normal. No evidence of significant lymphadenopathy. No suspicious bony findings. Significant thickening of the wall of the urinary bladder is seen with surrounding inflammatory stack es in the pelvic fat. IMPRESSION: Significant wall thickening and inflammation of the bladder and surrounding fat suggest urinary tract infection. Advise correlation with urinalysis. Advanced diverticulosis coli without diverticulitis. Cholelithiasis.
--- NOTE | 2020-10-05 12:03 | EDPHYS ---
Physician Documentation [facility] Name: Martin Santa Age: 75 yrs Sex: Male : 1945 Arrival Date: 10/05/2020 Time: 10:15 Bed 7 Private MD: Tracy Mitchell R ED Physician Santi Harrison HPI: 10/05 10:26 This 75 yrs old Male presents to ER via Unassigned with complaints of Urinary kdr Problem, Rectal Bleeding. Historical: - Allergies: 10:28 PENICILLINS; sv - PMHx: 10:28 Diabetes - NIDDM; Hypertension; High Cholesterol; Leaky heart valves; Asthma; Heart sv arrhythmia; CHF; - PSHx: 10:28 Hernia repair; L humerus; sv - Immunization history:: Client reports receiving the 2nd dose of the Covid vaccine, Client reports receiving the 1st dose of the Covid vaccine. - Social history:: Smoking status: Patient denies any tobacco usage or history of. ROS: 11:59 Constitutional: Negative for fever, chills, and weight loss in the last 24 hours. He kdr states that he hsa had fever earlier in the week and began to have fever and nausea but that has since resolved. Now just feels generally weak Eyes: Negative for injury, pain, redness, and discharge, ENT: Negative for injury, pain, and discharge, Neck: Negative for injury, pain, and swelling, Cardiovascular: Negative for chest pain, palpitations, and edema, Respiratory: Negative for shortness of breath, cough, wheezing, and pleuritic chest pain, Abdomen/GI: Negative for abdominal pain, nausea, vomiting, diarrhea, and constipation, Back: Negative for injury and pain, MS/Extremity: Negative for injury and deformity, Skin: Negative for injury, rash, and discoloration, Neuro: Negative for headache, weakness, numbness, tingling, and seizure activity. Psych: Negative for depression, anxiety, suicide ideation, homicidal ideation, and hallucinations, Allergy/Immunology: Negative for hives, rash, and allergies, Endocrine: Negative for neck swelling, polydipsia, polyuria, polyphagia, and marked weight changes, Hematologic/Lymphatic: Negative for swollen nodes, abnormal bleeding, and unusual bruising. 11:59 Abdomen/GI: Positive for Bleeding hemorrhoids . 11:59 : Positive for urinary symptoms, hematuria, burning with urination, difficulty urinating, Negative for injury or acute deformity, testicular pain Exam: 11:59 Constitutional: This is a well developed, well nourished patient who is awake, alert, kdr and in no acute distress. Head/Face: Normocephalic, atraumatic. Eyes: Pupils equal round and reactive to light, extra-ocular motions intact. Lids and lashes normal. Conjunctiva and sclera are non-icteric and not injected. Cornea within normal limits. Periorbital areas with no swelling, redness, or edema. Neck: Trachea midline, no thyromegaly or masses palpated, and no cervical lymphadenopathy. Supple, full range of motion without nuchal rigidity, or vertebral point tenderness. No Meningismus. Chest/axilla: Normal chest wall appearance and motion. Nontender with no deformity. No lesions are appreciated. Cardiovascular: Regular rate and rhythm with a normal S1 and S2. No gallops, murmurs, or rubs. Normal PMI, no JVD. No pulse deficits. Respiratory: Lungs have equal breath sounds bilaterally, clear to auscultation and percussion. No rales, rhonchi or wheezes noted. No increased work of breathing, no retractions or nasal flaring. Abdomen/GI: Soft, non-tender, with normal bowel sounds. No distension or tympany. No guarding or rebound. No evidence of tenderness throughout. Back: No spinal tenderness. No costovertebral tenderness. Full range of motion. Skin: Warm, dry with normal turgor. Normal color with no rashes, no lesions, and no evidence of cellulitis. MS/ Extremity: Pulses equal, no cyanosis. Neurovascular intact. Full, normal range of motion. Neuro: Awake and alert, GCS 15, oriented to person, place, time, and situation. Cranial nerves II-XII grossly intact. Motor strength 5/5 in all extremities. Sensory grossly intact. Cerebellar exam normal. Normal gait. Psych: Awake, alert, with orientation to person, place and time. Behavior, mood, and affect are within normal limits. Vital Signs: 10:25 BP 146 / 76; Pulse 112; Resp 20; Temp 97.7; Pulse Ox 100% ; Weight 99.79 kg; Height 5 sv ft. 10 in. (177.80 cm); Pain 7/10; 10:25 Body Mass Index 31.57 (99.79 kg, 177.80 cm) sv MDM: 11:59 Data reviewed: vital signs, nurses notes, lab test result(s), radiologic studies. [facility] Counseling: I had a detailed discussion with the patient and/or guardian regarding: the historical points, exam findings, and any diagnostic results supporting the discharge/admit diagnosis, lab results, radiology results, the need for outpatient follow up. 12:02 Patient medically screened. [facility] 10/05 10:25 Order name: Basic Metabolic Panel; Complete Time: : [facility] 10/05 10:25 Order name: CBC with Diff; Complete Time: : [facility] 10/05 10:25 Order name: Hepatic Function; Complete Time: : [facility] 10/05 10:25 Order name: Lipase; Complete Time: [facility] 10/05 10:25 Order name: Type And Screen; Complete Time: 11:58 [facility] 10/05 10:25 Order name: Urinalysis; Complete Time: 11: [facility] 10/05 10:25 Order name: IV Saline Lock; Complete Time: 10:59 [facility] 10/05 10:25 Order name: Urine Culture [facility] 10/05 10:53 Order name: CT Abd/Pelvis - IV Contrast Only; Complete Time: 11:58 [facility] 10/05 11:14 Order name: Urine Dipstick-Ancillary; Complete Time: : [facility] 10/05 11:37 Order name: Urine Microscopic Only; Complete Time: 11:58 [facility] 10/05 12:02 Order name: ABO/RH no charge [facility] 10/05 10:25 Order name: Labs collected and sent; Complete Time: 10:59 [facility] Administered Medications: 11:02 Drug: NS 0.9% 500 ml Route: IV; Rate: bolus; Site: right antecubital; hb 11:35 Follow up: Response: No adverse reaction; IV Status: Completed infusion; IV Intake: hb 500ml 12:50 Drug: Cipro (ciprofloxacin) 500 mg Route: PO; em 13:00 Follow up: Response: Medication administered at discharge. em Disposition: 10/05/20 12:02 Discharged to Home. Impression: Urinary tract infection, site not specified, Bladder disorders in diseases classified elsewhere, Bladder disorder, unspecified. - Condition is Stable. - Discharge Instructions: Dysuria, Urinary Tract Infection, Adult, Antibiotic Medicine, Adult. - Prescriptions for Levaquin 500 mg Oral Tablet - take 1 tablet by ORAL route once daily for 10 days; 10 tablet. Pyridium 200 mg Oral Tablet - take 1 tablet by ORAL route every 8 hours for 3 days; 9 tablet. - Medication Reconciliation Form, Thank You Letter, Antibiotic Education form. - Follow up: Tracy Mitchell MD; When: 2 - 3 days; Reason: If symptoms return, Further diagnostic work-up, Recheck today's complaints, Continuance of care, Re-evaluation by your physician. - Problem is new. - Symptoms have improved. Signatures: Dispatcher [employer] Saima Conte RN RN Santi Harrison MD MD [facility] Noel Pandey RN RN Ruby Vera RN RN Corrections: (The following items were deleted from the chart) 13:01 12:02 10/05/2020 12:02 Discharged to Home. Impression: Urinary tract infection, site em not specified; Bladder disorders in diseases classified elsewhere; Bladder disorder, unspecified. Condition is Stable. Forms are Medication Reconciliation Form, Thank You Letter, Antibiotic Education, Prescription Opioid Use. Follow up: Tracy Mitchell; When: 2 - 3 days; Reason: If symptoms return, Further diagnostic work-up, Recheck today's complaints, Continuance of care, Re-evaluation by your physician. Problem is new. Symptoms have improved. kdr
--- NOTE | 2020-10-05 12:03 | ER ---
Nurse's Notes [facility] Name: Martin Santa Age: 75 yrs Sex: Male : 1945 Arrival Date: 10/05/2020 Time: 10:15 Bed 7 Private MD: Tracy Mitchell R Diagnosis: Urinary tract infection, site not specified;Bladder disorders in diseases classified elsewhere;Bladder disorder, unspecified Presentation: 10/05 10:25 Chief complaint: Patient states: dysuria, painful urination, urinary frequency, fever sv Tmax 100.1 started Friday and hematuria started today. Also reports rectal bleeding from hemorrhoids. Coronavirus screen: Client denies travel out of the [place] in the last 14 days. At this time, the client does not indicate any symptoms associated with coronavirus-19. Ebola Screen: No symptoms or risks identified at this time. Risk Assessment: Do you want to hurt yourself or someone else? Patient reports no desire to harm self or others. Onset of symptoms was October 01, 2020. 10:25 Method Of Arrival: Wheelchair sv 10:25 Acuity: ODILIA 2 sv Triage Assessment: 10:25 General: Appears in no apparent distress. uncomfortable, Behavior is calm, cooperative, sv appropriate for age. Neuro: Level of Consciousness is awake, alert, obeys commands, Oriented to person, place, time, situation. Respiratory: Respiratory effort is even, unlabored. : Reports pain with urination, urinary frequency, hematuria, dysuria. Historical: - Allergies: 10:28 PENICILLINS; sv - PMHx: 10:28 Diabetes - NIDDM; Hypertension; High Cholesterol; Leaky heart valves; Asthma; Heart sv arrhythmia; CHF; - PSHx: 10:28 Hernia repair; L humerus; sv - Immunization history:: Client reports receiving the 2nd dose of the Covid vaccine, Client reports receiving the 1st dose of the Covid vaccine. - Social history:: Smoking status: Patient denies any tobacco usage or history of. Vital Signs: 10:25 BP 146 / 76; Pulse 112; Resp 20; Temp 97.7; Pulse Ox 100% ; Weight 99.79 kg; Height 5 sv ft. 10 in. (177.80 cm); Pain 7/10; 10:25 Body Mass Index 31.57 (99.79 kg, 177.80 cm) sv ED Course: 10:15 Patient arrived in ED. mr 10:15 Tracy Mitchell MD is Private Physician. mr 10:24 Santi Harrison MD is Attending Physician. kdr 10:27 Triage completed. sv 10:28 Arm band placed on. sv 10:35 Initial lab(s) drawn, by me, sent to lab. Inserted saline lock: 20 gauge in right kj1 antecubital area, using aseptic technique. Blood collected. 11:19 Ruby Vera, RN is Primary Nurse. hb 11:46 CT Abd/Pelvis - IV Contrast Only In Process Unspecified. EDMS 12:02 Tracy Mitchell MD is Referral Physician. kdr 13:00 No provider procedures requiring assistance completed. IV discontinued, intact, em bleeding controlled, No redness/swelling at site. Pressure dressing applied. Administered Medications: 11:02 Drug: NS 0.9% 500 ml Route: IV; Rate: bolus; Site: right antecubital; hb 11:35 Follow up: Response: No adverse reaction; IV Status: Completed infusion; IV Intake: hb 500ml 12:50 Drug: Cipro (ciprofloxacin) 500 mg Route: PO; em 13:00 Follow up: Response: Medication administered at discharge. em Intake: 11:35 IV: 500ml; Total: 500ml. hb Outcome: 12:02 Discharge ordered by . kdr 13:00 Discharged to home ambulatory. em 13:00 Condition: stable 13:00 Discharge instructions given to patient, Instructed on discharge instructions, follow up and referral plans. medication usage, Demonstrated understanding of instructions, follow-up care, medications, Prescriptions given X 2. 13:01 Patient left the ED. em Addendum: 10/08/2020 07:09 Addendum: Culture Results: Positive urine culture. No further action required. Bacteria e b sensitive to prescribed antibiotic. Signatures: Dispatcher [employer] Saima Conte RN RN Santi Harrison MD MD [facility] Barb Bailey mr PandeyNoel RN RN em Ruby Vera RN RN Jess Grey Kandis [id number]
[2020-10-05] MEDS ORDERED: CIPROFLOXACIN HCL 500 MG TAB ONE (12:56)
[2020-10-05 13:07] VITALS: BP 146/76; TEMP 97.7; O2SAT 100
== END 2020-10-05 13:01 | disposition home or self-care (01) ==
LOC: ER 10:12
DX: N39.0 Urinary tract infection, site not specified (principal); N32.9 Bladder disorder, unspecified; I10 Essential (primary) hypertension; Z88.0 Allergy status to penicillin
CPT/HCPCS: 87088; 85025; 87086; 80048; 36415; 86900; 86850; 86901; 80076; 87077; 87186; 83690; 74177; 96360; 99284; Q9967; J7040; 81003; 81015

== ENCOUNTER 2022-03-19 17:28 | Emergency (ER) | payer OTHER ==
--- OUTSIDE RECORDS SUMMARY | 2022-03-19 17:33 | XMS REPORT | Continuity of Care Document ---
:1945 Author Organization [facility] t Address [address] [place] [address] Care Team Providers Name Role Phone Ariana Bautista DO Primary Care Physician Anneliese Conrad Attending Clinician Unavailable ARIANA BAUTISTA Attending Clinician Unavailable JASE EVANS Attending Clinician Unavailable LAB90 Attending Clinician Unavailable Ariana Bautista DO Attending Clinician Payers Payer Name Policy Type Policy Number Effective Date Expiration Date S manas [employer] MEDICARE 7 [id number] 2021 [id number] GOLD 00:00:00 PLUS 2021 Problems Condition Condition Condition Status Onset Resolution Last Treating Co mments Source Name Details Category Date Date Treatment Clinician Date JADE-inhibi JADE-inhibi Disease Active 2021-05 K vicente tor cough tor cough 1-03 Seyb old 00:00: - 00 Externa l Mild Mild Disease Active Summer intermitte intermitte 8-05 Se ybold nt asthma nt asthma 00:00: - without without 00 Externa complicati complicati l on on Well adult Well adult Disease Active K vicente exam exam 5-05 Seybold 00:00: - 00 Externa l Gastroesop Gastroesop Disease Active K vicente hageal hageal 5-05 Seybold reflux reflux 00:00: - disease disease 00 Externa without without l esophagiti esophagiti s s 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 Seybold regurgitat regurgitat 00:00: - ion ion 00 Externa l Primary Primary Disease Active Summer hypertensi hypertensi 05 Se ybold on on 00:00: - 00 Externa l 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 Heart catheteri zation done Cardiolog y-Dr. Soni showed some disease but no stent required. Continue medical managemen t. 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 00:00: - 00 Externa l Allergies, Adverse Reactions, Alerts Allergy Allergy Status Severity Reaction(s) Onset Inactive Treating Comm ents Source Name Type Date Date Clinician Penicill Propensi Active Itching Kelse y ins ty to 5-05 Seybold adverse 00:00: reaction 00 s Penicill Propensi Active Itching Kelse y ins ty to 05 Seybold adverse 00:00: - reaction 00 Externa s l Social History Social Habit Start Date Stop Date Quantity Comments Source Alcohol intake 2022-03-14 2022-03-14 1 /d Summer Henson bold - 00:00:00 00:00:00 External Tobacco use and 2021-09-13 2021-09-13 Smokeless tobacco Luis jaeger Seybold - exposure 00:00:00 00:00:00 non-user External Education 2021-09-13 2021-09-13 18 Summer Schulerybold - 00:00:00 00:00:00 External Sex Ass[birth year] At 1945-08-071947-08-07 Summersixto arriaza - 00:00:00 00:00:00 External Smoking Status Start Date Stop Date Source Never smoked tobacco Summer rin old - External Medications Ordered Filled Start Stop Current Ordering Indication Dosage Frequency Signature Comments Components Source Medication Medication Date Date Medication? Clinician (SIG) Name Name Nitroglycer 2021-[address] 0.4 K elsey in 0.4 MG 1-03 mg under Seybol d sublingual 09:15: the tongue - SL Tab 12 every 5 Externa minutes as l needed for chest pain 1 to 2 tablets under the tongue at onset of attack. Repeat as needed up to 3 times. If not relieved CALL 911. Multiple 2021-05 Yes Take by Summer Vitamins-Mi 05-14 mouth Seybold nerals 09:15: - (MULTIVITAL 12 Externa OR) l Calcium 2021-05 Yes Take by Summer Polycarboph 05-14 mouth Seybold il 09:15: - (FIBER-CAPS 12 Externa OR) l Calcium 2021-05 Yes Take by Summer Carbonate-V 05-14 mouth Seybold itamin D 09:15: - 600-200 12 Externa MG-UNIT l oral Tablet Potassium 2021-05 Yes Take by Genevieve y 95 MG oral 05-14 mouth Seybold Tablet 09:15: - 12 Externa l Cyanocobala 2021-05 Yes Take by Vaibhav henson min -03 mouth Seybold (Vitamin 09:15: - B-12) 2000 12 Externa MCG oral l Tab CR Ascorbic 2021-05 Yes Take by Summer Acid 05-14 mouth Seybold (Vitamin C 09:15: - CR) 1000 MG 12 Externa oral Tab CR l Zinc 50 MG 2021-05 Yes Take by Marina ey oral - mouth Seybold Capsule 09:15: - 12 Externa l ASPIRIN 81 2021-05 Yes Take by Marina ey OR -03 mouth Seybold 09:15: - 12 Externa l Omeprazole 2021-05 Yes 40mg Take 40 mg K elsey 40 MG oral 03 by mouth Seybo ld Delayed 09:15: daily - Release 12 Externa Capsule l Losartan 2021-05 Yes [id number] 50mg Take 1 Vaibhav henson Potassium -03 tablet (50 Seyb old 50 MG oral 00:00: mg total) - Tablet 00 by mouth Externa daily l Metformin 0 Yes 500mg Take 1 Kelse y HCl 500 MG 9-25 tablet Seybold oral Tablet 00:00: (500 mg - 00 total) by Externa mouth l daily (with breakfast) Gabapentin 0 Yes 300mg Take 1 Marina ey 300 MG oral 6-28 capsule Seybo ld Capsule 00:00: (300 mg - 00 total) by Externa mouth l daily Metformin 2021-0 Yes 500mg Take 500 Vaibhav sey HCl 500 MG 5-05 mg by Seybold oral Tablet 09:59: mouth 27 daily (with breakfast) Gabapentin Yes 300mg Take 300 Ke lsey 300 MG oral 5-05 mg by Seybold Capsule 09:59: mouth 27 daily Nitroglycer Yes .4mg Place 0.4 K elsey in 5-05 mg under Seybold (Nitrostat) 09:59: the tongue 0.4 MG 27 every 5 sublingual minutes as SL Tab needed for chest pain 1 to 2 tablets under the tongue at onset of attack. Repeat as needed up to 3 times. If not relieved CALL 911. Multiple Yes Take by Summer Vitamins-Mi 5-05 mouth Seybold nerals 09:59: (MULTIVITAL 27 OR) Calcium Yes Take by Summer Polycarboph 5-05 mouth Seybold il 09:59: (FIBER-CAPS 27 OR) Calcium Yes Take by Summer Carbonate-V 5-05 mouth Seybold itamin D 09:59: (Calcium 27 600+D) 600-200 MG-UNIT oral Tablet Potassium Yes Take by Genevieve y 95 MG oral 5-05 mouth Seybold Tablet 09:59: 27 Cyanocobala Yes Take by Vaibhav schulery min 5-05 mouth Seybold (Vitamin 09:59: B-12) 2000 27 MCG oral Tab CR Ascorbic Yes Take by Summer Acid 5-05 mouth Seybold (Vitamin C 09:59: CR) 1000 MG 27 oral Tab CR Zinc 50 MG Yes Take by Marina ey oral 5-05 mouth Seybold Capsule 09:59: 27 ASPIRIN 81 Yes Take by Marina ey OR 5-05 mouth Seybold 09:59: 27 Omeprazole 0 Yes 40mg Take 40 mg K elsey 40 MG oral 5-05 by mouth Seybo ld Delayed 09:59: daily Release 27 Capsule Albuterol 0 Yes INHALE 2 Marina ey HFA 108 (90 3-31 PUFFS BY [employer] App old Base) 00:00: MOUTH FOUR MCG/ACT IN 00 TIMES AERS DAILY Atorvastati 0 Yes 40mg Take 40 mg Summer n Calcium 3-31 by mouth Seybol d 40 MG oral 00:00: every Tablet 00 morning Enalapril 0 Yes 20mg Take 20 mg Ke lsey Maleate 20 3-31 by mouth Seybo ld MG oral 00:00: every Tablet 00 morning hydroCHLORO 2021-0 Yes 12.5mg Take 12.5 Summer thiazide 3-31 mg by Seybold 12.5 MG 00:00: mouth oral Tablet 00 every morning Metoprolol 0 Yes 100mg Take 100 Ke lsey Succinate 3-31 mg by Seybold 100 MG oral 00:00: mouth in TABLET SR 00 the 24 HR morning and 100 mg in the evening. Albuterol 0 Yes INHALE 2 Marina ey HFA 108 (90 3-31 PUFFS BY [employer]) 00:00: MOUTH FOUR - MCG/ACT IN 00 TIMES Externa AERS DAILY l Atorvastati Yes 40mg Take 40 mg Summer n Calcium 3-31 by mouth Seybol d 40 MG oral 00:00: every - Tablet 00 morning Externa l hydroCHLORO 0 Yes 12.5mg Take 12.5 Summer thiazide 3-31 mg by Seybold 12.5 MG 00:00: mouth - oral Tablet 00 every Externa morning l Metoprolol 0 Yes 100mg Take 100 Ke lsey Succinate 3-31 mg by Seybold 100 MG oral 00:00: mouth in - TABLET SR 00 the Externa 24 HR morning l and 100 mg in the evening. Enalapril 2021- No 20mg Take 20 mg K elsey Maleate 20 3-31 11-03 by mouth Seyb old MG oral 00:00: 00:00 every - Tablet 00 :00 morning Externa l Immunizations Ordered Immunization Filled Immunization Date Status Commen ts Source Name Name Influenza Virus 2022-03-14 Completed Summer Se ybold Vaccine, 00:00:00 - External Quadrivalent, High Dose, Age 65 And Up Vital Signs Vital Name Observation Time Observation Value Comments Source Systolic blood 2022-03-14 14:38:00 140 mm[Hg] Summer Seybold - pressure External Diastolic blood 2022-03-14 14:38:00 70 mm[Hg] Kelse y Seybold - pressure External Heart rate 2022-03-14 14:12:00 71 /min Summer S eybold - External Body temperature 2022-03-14 14:12:00 36.56 Carolyn Marina ey Seybold - External Respiratory rate 2022-03-14 14:12:00 16 /min Marina ey Seybold - External Body height 2022-03-14 14:12:00 177.8 cm Summer S eybold - External Body weight 2022-03-14 14:12:00 94.802 kg Summer S eybold - External BMI 2022-03-14 14:12:00 29.99 kg/m2 Summer S eybold - External Systolic blood 2021-09-13 14:48:00 156 mm[Hg] Summer Seybold pressure Diastolic blood 2021-09-13 14:48:00 68 mm[Hg] Kelse y Seybold pressure Heart rate 2021-09-13 14:48:00 66 /min Summer S eybold Body temperature 2021-09-13 14:48:00 36.67 Carolyn Marina ey Seybold Respiratory rate 2021-09-13 14:48:00 16 /min Marina ey Seybold Body height 2021-09-13 14:48:00 177.8 cm Summer S eybold Body weight 2021-09-13 14:48:00 95.709 kg Summer S eybold BMI 2021-09-13 14:48:00 30.28 kg/m2 Summer S eybold Procedures This patient has no known procedures. Encounters Start End Encounter Admission Attending Care Care Encounter Source Date/Time Date/Time Type Type Clinicians Facility Department ID 2021-06-06 [place] [facility] [id number] Common 11:51:16 [facility] 2021-06-06 [place], [facility] [id number] Common 11:42:15 Anneliese [id number] [facility] 2021-06-06 [place], [facility] [id number] Common 11:42:06 Anneliese [id number] [facility] 2021-06-06 [facility] [place] [id number] Common 11:05:53 Anneliese [facility]01 [facility] 2021-06-06 [place] [id number] Common 11:01:55 Anneliese [id number] [facility] 2022-04-11 2022-04-11 Outpatient SUMMER BAUTISTA [id number] Summer 09:00:00 09:00:00 ARIANA Seybol d 2022-03-19 2022-03-19 Outpatient SUMMER EVANS [id number] Summer 15:45:00 15:45:00 JASE Seybol d 2022-03-14 2022-03-14 Outpatient SUMMER BAUTISTA [id number] Summer 09:30:00 09:30:00 ARIANA Seybol d 2021-12-14 2021-12-14 Outpatient LAB90 SUMMER INGRAM [id number] Summer 09:30:00 09:30:00 Seybol d 2021-12-14 2021-12-14 Office Vinod Bautista [id number] Summer 09:00:00 09:15:00 Visit Ariana Hendricks [id number] Se arsalan [id number] 2021-11-06 2021-11-06 Outpatient SUMMER BAUTISTA [id number] Summer 00:00:00 00:00:00 ARIANA Seybol d 2021-11-06 2021-11-06 Outpatient SUMMER BAUTISTA [id number] Summer 00:00:00 00:00:00 ARIANA Seybol d 2021-10-03 2021-10-03 Outpatient SUMMER BAUTISTA [id number] Summer 00:00:00 00:00:00 ARIANA Seybol d 2021-09-28 2021-09-28 Outpatient SUMMER BAUTISTA [id number] Summer 00:00:00 00:00:00 ARIANA Seybol d 2021-09-26 2021-09-26 Outpatient SUMMER BAUTISTA [id number] Summer 00:00:00 00:00:00 ARIANA Seybol d 2021-09-13 2021-09-13 Outpatient LAB90 SUMMER INGRAM [id number] Summer 11:00:00 11:00:00 Seybol d 2021-09-13 2021-09-13 Office Vinod Bautista [id number] Summer 10:00:00 10:45:00 Visit Ariana Hendricks [id number] Se arriaza [id number] Results This patient has no known results.
[2022-03-19] MEDS ORDERED: ACETAMINOPHEN 325 MG TABLET ONE (18:12)
[2022-03-19 18:17] LABS: Urine Blood Negative (Negative); Urine Glucose Negative (Negative); Urine Protein Negative (Negative)
[2022-03-19 18:19] LABS: Absolute Lymphocytes (CBC) 0.3 K/uL (0.7-4.9); Hematocrit 41.8 % (39.6-49.0); Lymphocytes % 5.1 % (15.3-44.8); MCV 94.9 fL (80-100); MPV 7.9 fL (7.6-11.3)
[2022-03-19 18:22] LABS: Protime INR 1.15
[2022-03-19] MEDS ORDERED: IBUPROFEN 400 MG TAB ONE (18:26)
[2022-03-19 18:33] LABS: Albumin 3.8 g/dL (3.4-5.0); Bilirubin Total 0.6 mg/dL (0.2-1.0); Potassium 3.6 mmol/L (3.5-5.1); Protein, Total 7.3 g/dL (6.4-8.2)
[2022-03-19 18:47] LABS: Urine RBC <5 /HPF (None Seen)
--- NOTE | 2022-03-19 19:08 | RAD REPORT ---
EXAM DESCRIPTION: RAD - Chest Single View - 03/19/2022 7:00 pm CLINICAL HISTORY: COUGH Chest pain. COMPARISON: Chest Single View dated 07/17/2020; Chest Pa And Lat (2 Views) dated 10/28/2019; Chest Sing le View dated 12/02/2015 FINDINGS: Portable technique limits examination quality. The lungs are grossly clear. The heart is upper limit of normal in size. No displaced fractures.Left humerus hardware. IMPRESSION: No acute intrathoracic process suspected.
[2022-03-19 19:30] LABS: SARS-COV-2 RT PCR NEGATIVE (NEGATIVE)
--- NOTE | 2022-03-19 20:19 | ER ---
Nurse's Notes [facility] [place] Name: Martin Santa Age: 76 yrs Sex: Male : 1945 Arrival Date: 03/19/2022 Time: 17:32 Bed 6 Private MD: Nikhil Hawkins A Diagnosis: Influenza due to identified novel influenza A virus Presentation: 03/19 17:44 Chief complaint: Patient states: fever, chills, cough, and sob with becoming easily iw winded today. Coronavirus screen: Vaccine status: Patient reports receiving the 2nd dose of the covid vaccine. Client denies travel out of the [place] in the last 14 days. Ebola Screen: Patient negative for fever greater than or equal to 101.5 degrees Fahrenheit, and additional compatible Ebola Virus Disease symptoms Patient denies exposure to infectious person. Patient denies travel to an Ebola-affected area in the 21 days before illness onset. Initial Sepsis Screen: Does the patient meet any 2 criteria? No. Patient's initial sepsis screen is negative. Does the patient have a suspected source of infection? No. Patient's initial sepsis screen is negative. Risk Assessment: Do you want to hurt yourself or someone else? Patient reports no desire to harm self or others. 17:44 Method Of Arrival: Ambulatory iw 17:44 Acuity: ODILIA 2 iw Triage Assessment: 17:46 General: Appears uncomfortable, well groomed, well developed, Behavior is calm, iw cooperative, appropriate for age. Pain: Denies pain. Respiratory: Reports shortness of breath air hunger labored breathing Onset: The symptoms/episode began/occurred gradually, the patient has moderate shortness of breath. Historical: - Allergies: 17:46 PENICILLINS; iw - PMHx: 17:46 Asthma; Diabetes - NIDDM; CHF; heart arrhythmia; High Cholesterol; Leaky heart valves; iw Hypertension; - Immunization history:: Adult Immunizations up to date. - Social history:: Smoking status: Patient denies any tobacco usage or history of. - Family history:: not pertinent. - Hospitalizations: : No recent hospitalization is reported. Screenin:38 Abuse screen: Denies threats or abuse. Nutritional screening: No deficits noted. tw2 Tuberculosis screening: No symptoms or risk factors identified. 20:42 Fall Risk None identified. ll3 Assessment: 18:00 General: Appears in no apparent distress. comfortable, Behavior is calm, cooperative, mb9 appropriate for age. 18:00 Pain: Denies pain. Neuro: Level of Consciousness is awake, alert, obeys commands, mb9 Oriented to person, place, time, situation, Appropriate for age. Neuro: Reports dizziness, since Friday but has gotten worse today. Cardiovascular: Heart tones S1 S2 present Capillary refill < 3 seconds Pulses are all present. Rhythm is regular. Respiratory: Airway is patent Respiratory effort is even, unlabored, Respiratory pattern is regular, symmetrical, pt intermittently coughing Breath sounds are clear bilaterally. GI: Abdomen is round Bowel sounds present X 4 quads. Abd is soft and non tender. : No signs and/or symptoms were reported regarding the genitourinary system. EENT: No signs and/or symptoms were reported regarding the EENT system. Derm: Skin is pink, warm \T\ dry. Musculoskeletal: Range of motion: intact in all extremities. 18:54 General: Appears in no apparent distress. comfortable, Behavior is calm, cooperative, mb9 appropriate for age. Pain: Denies pain. Neuro: Level of Consciousness is awake, alert, obeys commands, Oriented to person, place, time, situation, Appropriate for age. Cardiovascular: Rhythm is regular. Respiratory: Airway is patent Respiratory effort is even, unlabored, Respiratory pattern is regular, symmetrical. Derm: Skin is pink, warm \T\ dry. 20:42 Reassessment: No changes from previously documented assessment. Patient and/or family ll3 updated on plan of care and expected duration. Pain level reassessed. Patient is alert, oriented x 3, equal unlabored respirations, skin warm/dry/pink. Vital Signs: 17:44 BP 155 / 52; Pulse 88; Resp 26; Temp 102.7; Pulse Ox 100% ; Weight 94.8 kg; Height 5 iw ft. 10 in. (177.80 cm); 17:51 BP 155 / 52; Pulse 89; Resp 24; Pulse Ox 100% on R/A; mb9 18:54 BP 133 / 57; Pulse 88; Resp 18; Pulse Ox 100% on R/A; mb9 20:42 BP 116 / 52; Pulse 69; Resp 18; Pulse Ox 96% on R/A; ll3 17:44 Body Mass Index 29.99 (94.80 kg, 177.80 cm) ED Course: 17:32 Patient arrived in ED. rg4 17:32 Nikhil Hawkins MD is Private Physician. rg4 17:36 Celeste Estevez, HAILEY is Primary Nurse. tw2 17:38 Arm band placed on. tw2 17:41 Charles Sheriff MD is Attending Physician. rn 17:46 Triage completed. iw 18:00 EKG done, by ED staff, reviewed by Charles Sheriff MD. mb9 18:09 Barb Wei, RN is Primary Nurse. mb9 18:18 Inserted saline lock: 18 gauge in right antecubital area, using aseptic technique. mb9 Blood collected. 18:21 Urine Microscopic Only Sent. mb9 18:21 Urine Culture Sent. mb9 18:55 Blood Culture Adult (2) Sent. mb9 18:55 Urine Culture Sent. mb9 19:01 Chest Single View XRAY In Process Unspecified. EDMS 19:09 Attending Physician role handed off by Charles Sheriff MD sp3 19:09 Radu Lyon MD is Attending Physician. sp3 20:42 Patient has correct armband on for positive identification. Bed in low position. Call ll3 light in reach. Side rails up X 1. 20:42 No provider procedures requiring assistance completed. IV discontinued, intact, ll3 bleeding controlled, No redness/swelling at site. Pressure dressing applied. Administered Medications: 18:00 Drug: Motrin (ibuprofen) 800 mg Route: PO; mb9 18:17 Drug: Tylenol 650 mg Route: PO; mb9 Medication: 20:42 VIS not applicable for this client. ll3 Outcome: 20:19 Discharge ordered by . sp3 20:42 Discharged to home ambulatory. ll3 20:42 Condition: stable 20:42 Discharge instructions given to patient, Instructed on discharge instructions, follow up and referral plans. Demonstrated understanding of instructions, follow-up care. 20:44 Patient left the ED. ll3 Signatures: Dispatcher [employer] Ophelia James, RN HAILEY Charles Sheriff MD MD rn Wise, Tara, RN RN tw2 Alysha Berman rg4 Radu Lyon MD MD sp3 Patrick Jiang RN RN 3 Barb Wei RN RN mb9
--- NOTE | 2022-03-19 20:19 | EDPHYS ---
Physician Documentation [facility] Name: Martin Santa Age: 76 yrs Sex: Male : 1945 Arrival Date: 03/19/2022 Time: 17:32 Bed 6 Private MD: Nikhil Hawkins, A ED Physician Radu Lyon HPI: 03/19 18:09 This 76 yrs old Male presents to ER via Ambulatory with complaints of Fever, Dizziness, rn Breathing Difficulty. 18:09 This 76 yrs old Male presents to ER via Ambulatory with complaints of Fever, Dizziness, rn Breathing Difficulty. 18:09 The patient reports fever, that was measured at 102.7 degrees Fahrenheit. Onset: The rn symptoms/episode began/occurred 2 day(s) ago. Modifying factors: there are no obvious modifying factors. Associated signs and symptoms: Pertinent positives: chills, cough, shortness of breath, Pertinent negatives: abdominal pain, altered mental status, diarrhea, headache, skin rash, vomiting. Severity of symptoms: At their worst the symptoms were moderate in the emergency department the symptoms are unchanged. The patient has not experienced similar symptoms in the past. The patient has not recently seen a physician. Historical: - Allergies: 17:46 PENICILLINS; iw - PMHx: 17:46 Asthma; Diabetes - NIDDM; CHF; heart arrhythmia; High Cholesterol; Leaky heart valves; iw Hypertension; - Immunization history:: Adult Immunizations up to date. - Social history:: Smoking status: Patient denies any tobacco usage or history of. - Family history:: not pertinent. - Hospitalizations: : No recent hospitalization is reported. ROS: 18:09 Constitutional: + fever and chills Eyes: Negative for injury, pain, redness, and representative government relations, ENT: Negative for injury, pain, and discharge, Neck: Negative for injury, pain, and swelling, Cardiovascular: Negative for chest pain, palpitations, and edema, Respiratory: + cough and sob Abdomen/GI: Negative for abdominal pain, nausea, vomiting, diarrhea, and constipation, MS/Extremity: Negative for injury and deformity, Skin: Negative for injury, rash, and discoloration, Neuro: Negative for headache, numbness, tingling, and seizure. Exam: 18:09 Constitutional: This is a well developed, well nourished patient who is awake, alert, rn + mild tachypnea Head/Face: Normocephalic, atraumatic. ENT: dry MM, no stridor Cardiovascular: Regular rate and rhythm. No pulse deficits. Respiratory: + mild tachypnea, no retractions, diminished breath sounds at bases Abdomen/GI: soft, non-tender Skin: Warm, dry MS/ Extremity: Pulses equal, no cyanosis. Neuro: Awake and alert, GCS 15 Vital Signs: 17:44 BP 155 / 52; Pulse 88; Resp 26; Temp 102.7; Pulse Ox 100% ; Weight 94.8 kg; Height 5 iw ft. 10 in. (177.80 cm); 17:51 BP 155 / 52; Pulse 89; Resp 24; Pulse Ox 100% on R/A; mb9 18:54 BP 133 / 57; Pulse 88; Resp 18; Pulse Ox 100% on R/A; mb9 20:42 BP 116 / 52; Pulse 69; Resp 18; Pulse Ox 96% on R/A; ll3 17:44 Body Mass Index 29.99 (94.80 kg, 177.80 cm) iw MDM: 17:41 Patient medically screened. rn 20:18 Data reviewed: vital signs, nurses notes, lab test result(s), radiologic studies. ED sp3 course: Patient is influenza positive. He is feeling much better now and is in no acute distress. Chest x-ray demonstrates no significant abnormality. Will discharge patient home with general precautions and antipyretic usage education.. 03/19 17:47 Order name: Blood Culture Adult (2) rn 03/19 17:47 Order name: CBC with Diff; Complete Time: 18:28 rn 03/19 17:47 Order name: CMP; Complete Time: 18:54 rn 03/19 17:47 Order name: Lactate; Complete Time: 18:54 rn 03/19 17:47 Order name: Protime (+inr); Complete Time: 18:28 rn 03/19 17:47 Order name: Ptt, Activated; Complete Time: 18:28 rn 03/19 17:47 Order name: Urine Culture rn 03/19 17:47 Order name: Urine Microscopic Only; Complete Time: 18:54 rn 03/19 17:47 Order name: Chest Single View XRAY; Complete Time: 20:09 rn 03/19 17:47 Order name: Accucheck; Complete Time: 19:31 rn 03/19 17:47 Order name: COVID-19/FLU A+B/RSV (Document "Date of Onset" if Symptomatic); Complete rn Time: 20:09 03/19 18:17 Order name: Urine Dipstick-Ancillary; Complete Time: 18:28 EDMS 03/19 17:47 Order name: Cardiac monitoring; Complete Time: 17:51 rn 03/19 17:47 Order name: EKG - Nurse/Tech; Complete Time: 18:17 rn 03/19 17:47 Order name: IV Saline Lock - Large Bore; Complete Time: 18:17 rn 03/19 17:47 Order name: Labs collected and sent; Complete Time: 18:17 rn 03/19 17:47 Order name: O2 Per Protocol; Complete Time: 17:52 rn 03/19 17:47 Order name: O2 Sat Monitoring; Complete Time: 17:52 rn 03/19 17:47 Order name: Urine Dipstick-Ancillary (obtain specimen); Complete Time: 18:17 rn 03/19 17:47 Order name: Vital Signs; Complete Time: 17:52 rn Administered Medications: 18:00 Drug: Motrin (ibuprofen) 800 mg Route: PO; mb9 18:17 Drug: Tylenol 650 mg Route: PO; mb9 Disposition Summary: 03/19/22 20:19 Discharge Ordered Location: Home sp3 Condition: Stable sp3 Diagnosis - Influenza due to identified novel influenza A virus sp3 Followup: sp3 - With: Private Physician - When: Upon discharge from the Emergency Department - Reason: Recheck today's complaints Discharge Instructions: - Discharge Summary Sheet sp3 - Influenza, Adult, [id number] sp3 Forms: - Medication Reconciliation Form sp3 - Thank You Letter sp3 - Antibiotic Education sp3 - Prescription Opioid Use sp3 Signatures: Dispatcher [employer] Ophelia James RN Charles Swann MD MD rn Patel, Setul, MD MD sp3 Barb Wei RN RN mb9
[2022-03-19 21:10] VITALS: BP 155/52; TEMP 102.7; O2SAT 100
--- NOTE | 2022-03-21 06:33 | EKG ---
Test Date: 2022-03-19 Test Time: 17:54:01 Train Reservation Clerk: RANJITH MEASUREMENT RESULTS: Intervals: Rate: 84 SD: 148 QRSD: 98 QT: 370 QTc: 437 [place]: P: 72 SD: 148 QRS: 62 T: 67 INTERPRETIVE STATEMENTS: Normal sinus rhythm Normal ECG Compared to ECG 07/18/2020 10:46:39 No significant changes Electronically Signed On 03-21-22 06:30:40 SENIOR MECHANICAL DESIGN ENGINEER by Oscar Soni
== END 2022-03-19 20:44 | disposition home or self-care (01) ==
LOC: ER 17:28
DX: J09.X2 Influenza due to identified novel influenza A virus with other respiratory manifestations (principal); E11.9 Type 2 diabetes mellitus without complications; E78.00 Pure hypercholesterolemia, unspecified; I10 Essential (primary) hypertension; J45.909 Unspecified asthma, uncomplicated; Z88.0 Allergy status to penicillin; Z20.822 Contact with and (suspected) exposure to COVID-19
CPT/HCPCS: 93005; 87040 ×2; 87088; 85025; 87086; 36415; 85610; 83605; 85730; 80053; 0241U; 71045; 99284; 81003; 81015

== ENCOUNTER 2023-02-28 06:35 | Day surgery (SDC) | payer OTHER ==
[2023-02-14 15:43] LABS: Absolute Lymphocytes (CBC) 1.4 K/uL (0.7-4.9); Hematocrit 38.6 % (39.6-49.0); Lymphocytes % 19.9 % (15.3-44.8); MCV 96.5 fL (80-100); MPV 7.9 fL (7.6-11.3); Platelets 199 thou/uL (152-406)
[2023-02-14 15:45] LABS: Protime INR 1.06
--- NOTE | 2023-02-14 16:36 | RAD REPORT ---
EXAM DESCRIPTION: Conner Vallecillo And Jordin (2 Views)02/14/2023 3:26 pm CLINICAL HISTORY: Preop for cardiac catheterization. Hypertension COMPARISON: 2021 FINDINGS: The lungs appear clear of acute infiltrate. The heart is normal size IMPRESSION: No acute abnormalities displayed
--- NOTE | 2023-02-17 12:23 | EKG ---
Test Date: 2023-02-14 Test Time: 15:09:40 [employer]: ABRAHAM MEASUREMENT RESULTS: Intervals: Rate: 63 AK: 148 QRSD: 96 QT: 430 QTc: 440 [place]: P: 56 AK: 148 QRS: 24 T: 19 INTERPRETIVE STATEMENTS: Normal sinus rhythm Normal ECG Compared to ECG 03/19/2022 17:54:01 No significant changes Electronically Signed On 02-17-23 12:18:01 CDT by Tirso Erickson
[~2023-02-28 06:35] MED LIST: ATROPINE SULF 1 MG/10 ML SYR IV ONE; FENTANYL CITR 100 MCG/2 ML ONE; HEPA 1000U/500MLS 2,000 UNIT/1,000 ML BAG IV ONE; HEPARIN 10,000 UNIT/10 ML VIAL IV ONE; HEPARIN 5000 UNIT/ML 1 ML VIAL ONE; LIDOCAINE 1% 20 ML MDV ONE; MIDAZOLAM HCL 2 MG/2 ML INJ ONE; NITROGLYCERIN 100 MCG/ML SYR (for cath lab use only) IV ONE; VERAPAMIL HCL 10 MG/4 ML VIAL IV ONE
[2023-02-28] MEDS ORDERED: NA CHLORIDE 0.9% 500 ML ONE (06:53)
[2023-02-28] MEDS ORDERED: NITROGLYCERIN/D5W 50 MG/250 ML BTL IV ONE (07:03)
[2023-02-28 07:10] VITALS: TEMP 97
--- NOTE | 2023-02-28 08:00 | OP ---
Date of Procedure: 02/28/2023 Surgeon: JESIKA LOPEZ Procedures Performed: 1.Selective coronary angiogram. 2.Left heart catheterization. Indication: Unstable angina. Access: Right radial artery with 6-Yoruba, closed with TR band. Sedation: None. The patient's blood pressure was low. Description Of Procedure: After risks, benefits, and alternatives were explained, patient agreed to procedure and signed informed consent. Patient was brought into the cardiac catheterization laborato ry, prepped and draped in usual sterile fashion. Then, I accessed the right radial artery using pedi atric micropuncture kit, placed a 6-Yoruba slender sheath and took 5-Yoruba Petty 4 catheter over J-w joon into the aortic root, engaged left main and took standard views and then engaged the RCA and took standard views and over the wire, catheter was pushed into the LV, measured LVEDP and pullback did n ot record a gradient. Then, removed the catheter and sheath, placed TR band with good hemostasis. Findings: 1.Left main: Large and normal. 2.LAD: Moderate size vessel. Proximal 30% focal stenosis and then no significant disease. 3.Ramus intermedius: Very small artery about 1.5 mm and very short artery, has ostial 70% stenosis. 4.Left circumflex: Moderate-sized vessel with ostial 40% to 50% stenosis. 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 6.LVEDP normal at 7 mmHg. Conclusion: 1.[id number] coronary artery disease, nonobstructive. 2.Normal LVEDP. 3.Aneurysmal RCA, which could be the reason for his chest pain. Recommendation: Medical management with beta-blockers. SR/MODL Voice ID: [id number] Report ID: [id number]
[2023-02-28 08:52] VITALS: BP 115/58
[2023-02-28 08:54] VITALS: O2SAT 99
== END 2023-02-28 09:15 | disposition home or self-care (01) ==
LOC: PRE 06:35 → CCL 09:15
PROVIDERS: ATTEND Internal Medicine
DX: I25.110 Atherosclerotic heart disease of native coronary artery with unstable angina pectoris (principal); I25.41 Coronary artery aneurysm; I65.22 Occlusion and stenosis of left carotid artery; I70.203 Unspecified atherosclerosis of native arteries of extremities, bilateral legs; I34.0 Nonrheumatic mitral (valve) insufficiency; I10 Essential (primary) hypertension; E78.5 Hyperlipidemia, unspecified; E11.9 Type 2 diabetes mellitus without complications; Z79.82 Long term (current) use of aspirin; Z79.899 Other long term (current) drug therapy; Z88.0 Allergy status to penicillin
CPT/HCPCS: 93005; 85025; 80048; 36415; 83721; 85610; 82947; 85730; 71046; 93458; 76937; C1893; Q9966; J1644; J2001; J7040; J0461; J2250; J3010

== ENCOUNTER 2024-06-30 15:20 | Emergency (ER) | payer OTHER ==
--- OUTSIDE RECORDS SUMMARY | 2024-06-30 15:22 | XMS REPORT | Continuity of Care Document ---
Author Name Unknown Address [address] [facility] [address] [place] [address] [facility] Address [address] [facility] [address] [place] [address] Care Team Providers Care Classification And Treatment Director Name Role Phone Ariana Millard DO Primary Care Physician [phone] Sydnie López Attending Clinician Unavailable Anneliese Conrad Attending Clinician Unavailable JASON BAKER Attending Clinician Unavail able Jason Baker DPM Attending Clinician [phone] ARIANA MILLARD Attending Clinician Unavailable LAB90 Attending Clinician Unavailable JASE EVANS Attending Clinician Unava ilable Ariana Millard DO Attending Clinician [phone] Payers Payer Name Policy Type Policy Number Effective Date Expirati on Date Source [employer] HMO/POS COMM [id number] 2023 00:00:00 [employer] MEDICARE [id number] GOLD PLUS 2021 11 [id number] 2021 00:00:00 Problems Condition Name Condition Details Condition Category Status Onset Date Resolution Date Last Treatment Date Treating Clinician Comments Source Stable angina Stable angina Disease Active 2021-05 00:00: 00 Summer Melendez - Externcarly l JADE-inhibi tor cough JADE-inhibi tor cough Disease Active 2021-05 00:00: 00 Summer Seybold - Externa l Mild intermitte nt asthma without complicati on Mild intermitte nt asthma without complicati on Disease Active 12-14 00:00: 00 Summer Seybold - Externa l Well adult exam Well adult exam Disease Active 09-13 00:00: 00 Summer Hoangybold - Externa l Gastroesop hageal reflux disease without esophagiti s Gastroesop hageal reflux disease without esophagiti s Disease Active 09-13 00:00: 00 Summer Seybold - Externa l Mitral valve regurgitat ion Mitral valve regurgitat ion Disease Active 09-13 00:00: 00 Summer Seybold - Externa l Primary hypertensi on Primary hypertensi on Disease Active 09-13 00:00: 00 Summer Hoangybold - Externa l Type 2 diabetes mellitus with hyperlipid emia Type 2 diabetes mellitus with hyperlipid emia Disease Active 09-13 00:00: 00 Summer Palaciosold - Externa l Vitamin B12 deficiency Vitamin B12 deficiency Disease Active 09-13 00:00: 00 Summer Palaciosold - Externa l Coronary arterioscl erosis Coronary arterioscl erosis Disease Active 09-13 00:00: 00 Overview: Formattin g of this note might be different from the original. Heart catheteri zation done Cardiolog y-Dr. Soni showed some disease but no stent required. 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 Disease Active 09-13 00:00: 00 Summer Seybold - Externa l Allergies, Adverse Reactions, Alerts Allergy Name Allergy Type Status Severity Reaction(s) Onset Date Inactive Date Treating Clinician Comments Source Penicill in G Propensi ty to adverse reaction s Active 05-17 00:00: 00 Memoria l [place] Epic Penicill ins Propensi ty to adverse reaction s Active Itching 09-13 00:00: 00 Summer Seybold Penicill ins Propensi ty to adverse reaction s Active Itching 09-13 00:00: 00 Summer vázquez Social History Social Habit Start Date Stop Date Quantity Comments Source Gender identity Cleve yasmeen [facility] Sexual orientation [facility] Alcohol intake 2022-04-11 00:00:00 2022-04-11 00:00:00 1 /d Summer Melendez - External Tobacco use and exposure 2021-09-13 00:00:00 2021-09-13 00:00:00 Smokeless tobacco non-user Summer Melendez - External Education 2021-09-13 00:00:00 2021-09-13 00:00:00 18 Summer Melendez - External Sex Ass[birth year] At 1945 00:00:00 1945 00:00:00 Summer Melendez - External Smoking Status Start Date Stop Date Source Tobacco smoking consumption unknown [facility] Never smoked tobacco Summer Melendez - External Medications Ordered Medication Name Filled Medication Name Start Date Stop Date Current Medication? Ordering Clinician Indication Dosage Frequency Signature (SIG) Comments Components Source clindamycin (Cleocin) 300 MG capsule clindamycin (Cleocin) 300 MG capsule 05-17 00:00: 00 05-31 23:59 :00 No 300mg Q.5D Take 1 capsule by mouth in the morning and 1 capsule in the evening. Do all this for 14 days. Rosa Banks Nitroglycer in 0.4 MG sublingual SL Tab 2021-05 08:53: [address] 0.4 mg under the tongue every 5 minutes as needed for chest pain 1 to 2 tablets under the tongue at onset of attack. Repeat as needed up to 3 times. If not relieved CALL 911. Summer vázquez Multiple Vitamins-Mi nerals (MULTIVITAL OR) 2021-05 08:53: 21 Yes Take by mouth Summer vázquez Calcium Carbonate-V itamin D 600-200 MG-UNIT oral Tablet 2021-05 08:53: 21 Yes Take by mouth Summer vázquez Potassium 95 MG oral Tablet 2021-05 08:53: 21 Yes Take by mouth Summer vázquez Cyanocobala min (Vitamin B-12) 2000 MCG oral Tab CR 2021-05 08:53: 21 Yes Take by mouth Summer vázquez Ascorbic Acid (Vitamin C CR) 1000 MG oral Tab CR 2021-05 08:53: 21 Yes Take by mouth Summer vázquez Zinc 50 MG oral Capsule 2021-05 08:53: 21 Yes Take by mouth Summer vázquez Omeprazole 40 MG oral Delayed Release Capsule 2021-05 08:53: 21 Yes 40mg Take 40 mg by mouth daily Summer vázquez Ondansetron HCl 4 MG oral Tablet 2021-05 00:00: 00 Yes [id number] 4mg [id number] 3D Take 1 tablet (4 mg total) by mouth every 8 hours as needed for nausea Summer vázquez Oseltamivir Phosphate 75 MG oral Capsule 2021-05 00:00: 00 04-11 00:00 :00 No [id number] 75mg Take 1 capsule (75 mg total) by mouth 2 times daily Summer vázquez Benzonatate (Tessalon Perles) 100 MG oral Capsule 2021-05 00:00: 00 04-11 00:00 :00 No [id number] 100mg [id number] 3D Take 1 capsule (100 mg total) by mouth 3 times daily as needed for cough Summer vázquez Losartan Potassium 50 MG oral Tablet 2021-05 00:00: 00 Yes [id number] 50mg Take 1 tablet (50 mg total) by mouth daily Summer vázquez Nitroglycer in 0.4 MG sublingual SL Tab 2021-05 09:15: [address] 0.4 mg under the tongue every 5 minutes as needed for chest pain 1 to 2 tablets under the tongue at onset of attack. Repeat as needed up to 3 times. If not relieved CALL 911. Summer vázquez Multiple Vitamins-Mi nerals (MULTIVITAL OR) 2021-05 09:15: 12 Yes Take by mouth Summer vázquez Calcium Carbonate-V itamin D 600-200 MG-UNIT oral Tablet 2021-05 09:15: 12 Yes Take by mouth Summer vázquez Potassium 95 MG oral Tablet 2021-05 09:15: 12 Yes Take by mouth Summer vázquez Cyanocobala min (Vitamin B-12) 2000 MCG oral Tab CR 2021-05 09:15: 12 Yes Take by mouth Summer vázquez Ascorbic Acid (Vitamin C CR) 1000 MG oral Tab CR 2021-05 09:15: 12 Yes Take by mouth Summer vázquez Zinc 50 MG oral Capsule 2021-05 09:15: 12 Yes Take by mouth Summer vázquez Omeprazole 40 MG oral Delayed Release Capsule 2021-05 09:15: 12 Yes 40mg Take 40 mg by mouth daily Summer vázquez Losartan Potassium 50 MG oral Tablet 2021-05 00:00: 00 Yes [id number] 50mg Take 1 tablet (50 mg total) by mouth daily Summer vázquez Metformin HCl 500 MG oral Tablet 02-03 00:00: 00 Yes 500mg Take 1 tablet (500 mg total) by mouth daily (with breakfast) Summer vázquez Gabapentin 300 MG oral Capsule 11-06 00:00: 00 Yes 300mg Take 1 capsule (300 mg total) by mouth daily Summer vázquez Metformin HCl 500 MG oral Tablet 09-13 09:59: 27 Yes 500mg Take 500 mg by mouth daily (with breakfast) Summer Melendez Gabapentin 300 MG oral Capsule 09-13 09:59: 27 Yes 300mg Take 300 mg by mouth daily Summer Melendez Nitroglycer in (Nitrostat) 0.4 MG sublingual SL Tab 09-13 09:59: [address] 0.4 mg under the tongue every 5 minutes as needed for chest pain 1 to 2 tablets under the tongue at onset of attack. Repeat as needed up to 3 times. If not relieved CALL 911. Summer Melendez Multiple Vitamins-Mi nerals (MULTIVITAL OR) 09-13 09:59: 27 Yes Take by mouth Summer Melendez Calcium Carbonate-V itamin D (Calcium 600+D) 600-200 MG-UNIT oral Tablet 09-13 09:59: 27 Yes Take by mouth Summer Melendez Potassium 95 MG oral Tablet 09-13 09:59: 27 Yes Take by mouth Summer Melendez Cyanocobala min (Vitamin B-12) 2000 MCG oral Tab CR 09-13 09:59: 27 Yes Take by mouth Summer Melendez Ascorbic Acid (Vitamin C CR) 1000 MG oral Tab CR 09-13 09:59: 27 Yes Take by mouth Summer Melendez Zinc 50 MG oral Capsule 09-13 09:59: 27 Yes Take by mouth Summer Melendez Omeprazole 40 MG oral Delayed Release Capsule 09-13 09:59: 27 Yes 40mg Take 40 mg by mouth daily Summer Melendez Albuterol HFA 108 (90 Base) MCG/ACT IN AERS 08-09 00:00: 00 Yes INHALE 2 PUFFS BY MOUTH FOUR TIMES DAILY Summer vázquez Atorvastati n Calcium 40 MG oral Tablet 08-09 00:00: 00 Yes 40mg Take 40 mg by mouth every morning Summer vázquez hydroCHLORO thiazide 12.5 MG oral Tablet 08-09 00:00: 00 Yes 12.5mg Take 12.5 mg by mouth every morning Summer vázquez Metoprolol Succinate 100 MG oral TABLET SR 24 HR 08-09 00:00: 00 Yes 100mg Take 100 mg by mouth in the morning and 100 mg in the evening. Summer vázquez Enalapril Maleate 20 MG oral Tablet 08-09 00:00: 00 Yes 20mg Take 20 mg by mouth every morning Summer Melendez Vital Signs Vital Name Observation Time Observation Value Comments S [place] Systolic blood pressure 2022-04-11 14:48:00 138 mm[Hg] Summer Seybo ld - External Diastolic blood pressure 2022-04-11 14:48:00 66 mm[Hg] Summer Seybo ld - External Heart rate 2022-04-11 14:48:00 77 /min Kelse y Seybold - External Body temperature 2022-04-11 14:48:00 36.17 Carolyn Summer Seybold - External Respiratory rate 2022-04-11 14:48:00 15 /min Summer Seybold - External Body height 2022-04-11 14:48:00 177.8 cm Marina ey Seybold - External Body weight 2022-04-11 14:48:00 94.802 kg Marina ey Seybold - External BMI 2022-04-11 14:48:00 29.99 kg/m2 Marina ey Seybold - External Systolic blood pressure 2022-03-14 14:38:00 140 mm[Hg] Summer Seybo ld - External Diastolic blood pressure 2022-03-14 14:38:00 70 mm[Hg] Summer Seybo ld - External Heart rate 2022-03-14 14:12:00 71 /min Kelse y Seybold - External Body temperature 2022-03-14 14:12:00 36.56 Carolyn Summer Seybold - External Respiratory rate 2022-03-14 14:12:00 16 /min Summer Seybold - External Body height 2022-03-14 14:12:00 177.8 cm Marina ey Seybold - External Body weight 2022-03-14 14:12:00 94.802 kg Marina ey Seybold - External BMI 2022-03-14 14:12:00 29.99 kg/m2 Marina ey Seybold - External Systolic blood pressure 2021-09-13 14:48:00 156 mm[Hg] Summer Seybo ld Diastolic blood pressure 2021-09-13 14:48:00 68 mm[Hg] Summer Seybo ld Heart rate 2021-09-13 14:48:00 66 /min Kelse y Seybold Body temperature 2021-09-13 14:48:00 36.67 Carolyn Summer Seybold Respiratory rate 2021-09-13 14:48:00 16 /min Summer Seybold Body height 2021-09-13 14:48:00 177.8 cm Marina Melendez Body weight 2021-09-13 14:48:00 95.709 kg Marina Melendez BMI 2021-09-13 14:48:00 30.28 kg/m2 Marina Melendez Procedures Procedure Date / Time Performed Performing Clinicia n Source Fungal Culture Skin/Hair/Nails w/Smear 2024-04-12 00:00:00 [facility] 2022-04-11 15:20:46 Ariana Millarddeavn - External Encounters Start Date/Time End Date/Time Encounter Type Admission Type Attending [facility] Care Facility Care Department Encounter ID Source 2023-12-30 08:19:00 Outpatient Sydnie López [facility] [id number] [facility] 2022-12-31 08:11:00 Outpatient Sydnie López [facility] [id number] [facility] 2022-05-22 15:12:00 Outpatient Sydnie López [facility] [id number] [facility] 2021-06-06 11:51:16 Outpatient Anneliese Conrad [facility] [id number] [facility] 2021-06-06 11:42:15 Outpatient Anneliese Conrad [facility] [id number] [facility] 2021-06-06 11:42:06 Outpatient Anneliese Conrad [facility] [id number] [facility] 2021-06-06 11:05:53 Outpatient Anneliese Conrad [facility] [id number] [facility] 2021-06-06 11:01:55 Outpatient Anneliese Conrad [facility] [id number] [facility] 2024-06-07 13:45:42 2024-06-07 14:43:19 Outpatient Elective JASON BAKEROUT [id number] EOUT 2024-06-07 13:30:00 2024-06-07 13:40:00 Office Visit Selbst, Jason [facility] [id number] Rosa vázquez [facility] 2024-05-24 13:40:00 2024-05-24 14:36:47 Outside Procedure Selbst, Jason [facility] [id number] 2024-05-24 13:31:15 2024-05-24 14:36:47 Outpatient Elective SELBST, JASON TANYA EOUT [id number] [facility] 2024-05-17 13:10:00 2024-05-17 14:00:56 Office Visit SelbstJason [facility] [id number] Rosa vázquez [facility] 2024-05-17 12:56:00 2024-05-17 14:00:56 Outpatient Elective SELBST, JASON TANYA MHEOUT [id number] EOUT 2024-04-12 13:23:50 2024-04-12 14:27:21 Outpatient Elective SELBST, JASON AlphonsoOUT MHEOUT [id number] EOUT 2024-04-12 13:40:00 2024-04-12 13:50:00 Consult SelbstJason [facility] [id number] Rosa vázquez [facility] 2022-09-19 00:00:00 2022-09-19 00:00:00 Outpatient PREZAS, ARIANA INGRAM [id number] [facility] 2022-07-12 10:00:00 2022-07-12 10:00:00 Outpatient PREZAS, ARIANA INGRAM [id number] Summer Hoangdevan 2022-06-09 00:00:00 2022-06-09 00:00:00 Outpatient PREZAS, ARIANA INGRAM [id number] Summer [facility] 2022-05-18 00:00:00 2022-05-18 00:00:00 Outpatient PREZAS, ARIANA INGRAM SUMMER [id number] Summer [facility] 2022-05-04 00:00:00 2022-05-04 00:00:00 Outpatient PREZAS, ARIANA INGRAM SUMMER [id number] Summer [facility] 2022-04-11 09:00:00 2022-04-11 09:00:00 Outpatient PREZAS, ARIANA INGRAM SUMMER [id number] [facility] 2022-04-02 08:05:00 2022-04-02 08:05:00 Outpatient REBECCA CADENASEY [id number] Summer [facility] 2022-03-25 00:00:00 2022-03-25 00:00:00 Outpatient PREZAS, ARIANA INGRAM SUMMER [id number] [facility] 2022-03-20 00:00:00 2022-03-20 00:00:00 Outpatient PREZAS, ARIANA INGRAM SUMMER [id number] [facility] 2022-03-20 00:00:00 2022-03-20 00:00:00 Outpatient PREZAS, ARIANA INGRAM SUMMER [id number] Summer [facility] 2022-03-20 00:00:00 2022-03-20 00:00:00 Outpatient PREZAS, ARIANA INGRAM SUMMER [id number] [facility] 2022-03-19 15:45:00 2022-03-19 15:45:00 Outpatient JASE EVANS [id number] [facility] 2022-03-14 09:30:00 2022-03-14 09:30:00 Outpatient ARIANA MILLARD [id number] Summer Melendez 2021-12-14 09:30:00 2021-12-14 09:30:00 Outpatient LAB90 SUMMER INGRAM [id number] Summer Melendez 2021-12-14 09:00:00 2021-12-14 09:15:00 Office Visit Ariana Millard [id number] Summer Melendez 2021-11-06 00:00:00 2021-11-06 00:00:00 Outpatient ARIANA MILLARD [id number] Summer Melendez 2021-11-06 00:00:00 2021-11-06 00:00:00 Outpatient ARIANA MILLARD [id number] Summer Melendez 2021-10-03 00:00:00 2021-10-03 00:00:00 Outpatient ARIANA MILLARD [id number] Summer Melendez 2021-09-28 00:00:00 2021-09-28 00:00:00 Outpatient ARIANA MILLARD [id number] Summer Melendez 2021-09-26 00:00:00 2021-09-26 00:00:00 Outpatient ARIANA MILLARD [id number] Summer Melendez 2021-09-13 11:00:00 2021-09-13 11:00:00 Outpatient LAB90 SUMMER INGRAM [id number] Summer Melendez 2021-09-13 10:00:00 2021-09-13 10:45:00 Office Visit Ariana Millard [id number] Summer Melendez Results Test Description Test Time Test Comments Results Result Co mments Source Summer Melendez - External Notes Date/Time Note Provider Source 2024-06-07 14:30:05 Jason Baker ELSA - 06/07/2024 1:30 PM [employer] PERSON CHIEF COMPLAINT: - Status-post LEFT HALLUX TOTAL NAIL AVULSION with MEDIAL excisional matrixectomy, MAY 24, 2024 HISTORY OF PRESENT ILLNESS: Patient states total resolution to surgical procedure and is doing well without complaints Patient has completed taking antibiotics as directed Patient denies pain Patient denies local and systemic signs of infection OBJECTIVE: PHYSICAL EXAM OF THE LOWER EXTREMITY: Vascular (-) edema symmetrical to bilateral lower extremity (-) ecchymosis (-) erythema (+) 2/4 pedal pulses, bilateral (+) Capillary Refill time: within normal limits (-) varicosities (+) pedal hair growth. Neurological (+) sensation with 5.07 Bertram Kat monofilament examination to the most distal lower extremity (-) clonus present (-) tinel's sign Dermatological (+) resolved surgical site from ingrown nail procedure, (-) paronychia (-) signs of infection, (-) open wounds, (-) macerations, (-) abscess, (-) ischemic tissue (-) other primary or secondary lesions (+) normal temperature when compared to contralateral limb (+) normal color, tugor, and elasticity. Musculoskeletal (-) pain to ingrown nail border, (-) other pain on palpation or with range of motion throughout the remainder of the lower extremity 5/5 muscle strength to extrinsic pedal muscle groups (-) evidence of compartment syndrome, (-) evidence of deep vein thrombosis. ASSESSMENT: Status-post LEFT HALLUX TOTAL NAIL AVULSION with MEDIAL excisional matrixectomy, MAY 24, 2024 TREATMENT PLAN: - Extensive visit discussing ingrown nail procedure risks, complications, benefits. - Antibiotics - completed - Pain - over the counter medication of choice, as needed - Wound - apply topical antibiotic ointment to help keep moisturized - Culture - not indicated - Imaging - not indicated - Weight bearing - as tolerated in protected shoes - Return 4 weeks for nail regrowth eval and POSSIBLE CONTRALATERAL HALLUX NAIL PROCEDURE Patient advised to report to my clinic or the emergency room immediately with any questions or concerns.Patient Instructions: Discussion: A detailed discussion was provided to the patient with specific reference to etiology, pathology, alternate treatment options, and prognosis. All risks and complications (including side effects) with each treatment/medication alternative were outlined in detail including but not limited to: Pain, swelling, numbness, loss of function, loss of limb, bleeding, hematoma, scarring, failure to relieve condition, surgery, additional/revisional surgery, reflex sympathetic dystrophy, complex regional pain syndrome, reoccurrence of deformity, joint stiffness, flail toe, bone and/or soft tissue infection, blood clots, pulmonary embolism, possible ,delayed or non-healing. X-rays, graphs and drawings were all used to assist with patient comprehension when appropriate. All patients questions were answered and stated they fully understood. No guarantee as to results or outcome of treatment was made. 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 PERSON [facility]2025-01-27 14:30:05 Diagnosis Abnormal foot finding - Prim [facility]2025-01-27 14:30:05* Jason Baker DPM - 06/07/2024 1:30 PM [employer] PERSON CHIEF COMPLAINT: - Status-post LEFT HALLUX TOTAL NAIL AVULSION with MEDIAL excisional matrixectomy, MAY 24, 2024 HISTORY OF PRESENT ILLNESS: Patient states total resolution to surgical procedure and is doing well without complaints Patient has completed taking antibiotics as directed Patient denies pain Patient denies local and systemic signs of infection OBJECTIVE: PHYSICAL EXAM OF THE LOWER EXTREMITY: Vascular (-) edema symmetrical to bilateral lower extremity (-) ecchymosis (-) erythema (+) 2/4 pedal pulses, bilateral (+) Capillary Refill time: within normal limits (-) varicosities (+) pedal hair growth. Neurological (+) sensation with 5.07 Bertram Kat monofilament examination to the most distal lower extremity (-) clonus present (-) tinel's sign Dermatological (+) resolved surgical site from ingrown nail procedure, (-) paronychia (-) signs of infection, (-) open wounds, (-) macerations, (-) abscess, (-) ischemic tissue (-) other primary or secondary lesions (+) normal temperature when compared to contralateral limb (+) normal color, tugor, and elasticity. Musculoskeletal (-) pain to ingrown nail border, (-) other pain on palpation or with range of motion throughout the remainder of the lower extremity 5/5 muscle strength to extrinsic pedal muscle groups (-) evidence of compartment syndrome, (-) evidence of deep vein thrombosis. ASSESSMENT: Status-post LEFT HALLUX TOTAL NAIL AVULSION with MEDIAL excisional matrixectomy, MAY 24, 2024 TREATMENT PLAN: - Extensive visit discussing ingrown nail procedure risks, complications, benefits. - Antibiotics - completed - Pain - over the counter medication of choice, as needed - Wound - apply topical antibiotic ointment to help keep moisturized - Culture - not indicated - Imaging - not indicated - Weight bearing - as tolerated in protected shoes - Return 4 weeks for nail regrowth eval and POSSIBLE CONTRALATERAL HALLUX NAIL PROCEDURE Patient advised to report to my clinic or the emergency room immediately with any questions or concerns.Patient Instructions: Discussion: A detailed discussion was provided to the patient with specific reference to etiology, pathology, alternate treatment options, and prognosis. All risks and complications (including side effects) with each treatment/medication alternative were outlined in detail including but not limited to: Pain, swelling, numbness, loss of function, loss of limb, bleeding, hematoma, scarring, failure to relieve condition, surgery, additional/revisional surgery, reflex sympathetic dystrophy, complex regional pain syndrome, reoccurrence of deformity, joint stiffness, flail toe, bone and/or soft tissue infection, blood clots, pulmonary embolism, possible ,delayed or non-healing. X-rays, graphs and drawings were all used to assist with patient comprehension when appropriate. All patients questions were answered and stated they fully understood. No guarantee as to results or outcome of treatment was made. I have discussed with the patient or legally responsible person prior to obtaining consent: the risks, potential benefits and drawbacks, significant alternatives, potential for problems related to recuperation, likelihood of success, and possible results of non-treatment, and the patient or the legally responsible person has agreed to proceed [facility]2025-01-27 14:30:05 [id number]05 Diagnosis Abnormal foot finding - [place] [id number] 14:51:47* Jason Baker, ELSA - 05/24/2024 1:40 PM [employer]ER[employer] PERSON CHIEF COMPLAINT: SX: INGROWN NAIL, LEFT HALLUX TOTAL NAIL AVULSION with MEDIAL excisional matrixectomy HISTORY OF PRESENT ILLNESS: Patient states some improvement improvement to ingrown nail pain and infection after soaking and both topical and oral antibiotic medication Patient states that since the ingrown nail has not fully resolved, patient is requesting to have a surgical procedure to permanently remove the ingrown nail Patient denies systemic signs of infection PHYSICAL EXAM OF THE LOWER EXTREMITY: Vascular (-) edema, bilateral lower extremity (-) ecchymosis (-) erythema (+) 2/4 pedal pulses, dorsalis pedis and posterior tibial artery bilateral (+) Capillary Refill time: within normal limits (-) varicosities (+) pedal hair growth Neurological (+) sensation with 5.07 Bertram Kat monofilament examination to the most distal lower extremity (-) clonus present (-) tinel's sign Dermatological (+) ingrown nail (+) paronychia (-) acute signs of infection (-) deep open wounds, after nail debridement/removal (+) Healthy bleeding during debridement (-) macerations (-) abscess (-) ischemic tissue (-) other primary or secondary lesions (+) normal temperature when compared to contralateral limb (+) normal color, tugor, and elasticity Musculoskeletal (+) pain to ingrown nail border (-) other pain on palpation or with range of motion throughout the remainder of the lower extremity 5/5 muscle strength to extrinsic pedal muscle groups (-) evidence of compartment syndrome (-) evidence of deep vein thrombosis ASSESSMENT: Ingrown nail with paronychia, LEFT HALLUX TREATMENT PLAN: - Extensive visit discussing possible pedal complications associated with prolong infection and ingrown nail. Although the acute findings of ingrown nail have improved, it is ideal to proceed with surgical removal due to the ongoing but reduced signs of infection - Antibiotics - continue - Pain - over the counter medication of choice, as needed - Patient consented for LEFT HALLUX TOTAL nail avulsion with MEDIAL excisional matrixectomy. Patient understands and agrees with plan after a thorough discussion about risks, complications, benefits, alternatives,no guarantees were given. Many risks were discussed with the patient in great detail which were, but not limited to: pain, swelling, numbness, loss of function, loss of limb, loss of life, bleeding, swelling, hematoma, blood clot, embolism, scarring, worsening infection, ischemia, ingrown nail regrowth, irregular nail growth, total loss of nail, total nail regrowth, need for revision/further surgery - Time out was taken. LEFT foot prepped and draped with sterile manner. Injection performed in an aseptic technique using 3cc of and 2% lidocaine plain then followed by 3cc of 0.5% marcaine plain injected at the to base of the toe. Tourniquet was placed. Nail border was freed from attachments, clipped, and removed. [place] blade was utilized to excise nail matrix in a full thickness fashion. Wound was copiously irrigated. Applied triple antibiotic ointment and dry sterile dressing. Tourniquet was removed. - home wound care instructions - provided, change bandage in 4 hours. Begin applying bandaid and triple antibiotic ointment. Soak daily in Epsom salt. May allow toe to dry in air while non-weight bearing at night. Written instruction dispensed. - Culture - due to lack of specimen, no culture could be obtained - Imaging - not indicated - Weight bearing - as tolerated in protected shoes - Return 1 week for surgical wound eval Patient advised to report to my clinic or the emergency room immediately with any questions or concerns.Discussion: A detailed discussion was provided to the patient with specific reference to etiology, pathology, alternate treatment options, and prognosis. All risks and complications (including side effects) with each treatment/medication alternative were outlined in detail including but not limited to: Pain, swelling, numbness, loss of function, loss of limb, loss of life, bleeding, blood clot, embolism, hematoma, scarring, worsening of condition, failure to relieve condition, surgery, over/under correction from procedure, additional/revisional surgery, reflex sympathetic dystrophy, complex regional pain syndrome, reoccurrence of deformity, joint, stiffness, flail toe, bone and/or soft tissue infection, blood clots, pulmonary embolism, possible , delayed or non-healing. X-rays, graphs and drawings were all used to assist with patient comprehension when appropriate. All patients questions were answered and stated they fully understood. No guarantee as to result or outcome of treatment was made. I have discussed with the patient or legally responsible person prior to obtaining consent: the risks, potential benefits and drawbacks, significant alternatives, potential for problems related to recuperation, likelihood of success, and possible results of non-treatment, and the patient or the legally responsible person has agreed to proceed. [employer] [facility] [id number] 14:51:47 [place] [id number] 14:51:47 Diagnosis Abnormal foot finding - Prim britt [facility] [id number] 14:04:57* Jason Baker DPM - 05/17/2024 1:10 PM [employer] CHIEF COMPLAINT: LEFT hallux nail ingrown. History of present illness: Patient states INGROWN NAIL, starting approximately May 10, 2024 Patient states he has been picking at the thick yellow irregular nail where the previous biopsy site had fully resolved Patient denies systemic signs of infection. Patient states pain is currently rated 2/10 on palpation, ingrown nail border OBJECTIVE PHYSICAL EXAM OF THE LOWER EXTREMITY: Vascular (+) edema, Localized to the ingrown nail border (-) erythema, Localized to the ingrown nail border (-) ecchymosis (+) 2/4 pedal pulses, bilateral (+) Capillary Refill time: within normal limits (-) varicosities (+) pedal hair growth. Neurological (+) sensation with 5.07 Bertram Kat monofilament examination to the most distal lower extremity (-) clonus present (-) tinel's sign. Dermatological (+) signs of soft tissue infection localized to the ingrown nail border, (+) paronychia (+) nails thick yellow irregular, left hallux (-) open wounds, (-) macerations, (-) ischemic tissue, (-) drainage/abscess (-) other primary or secondary lesions (+) normal temperature when compared to contralateral limb (+) normal color, tugor, and elasticity. Musculoskeletal (+) pain to ingrown nail border, (-) other pain on palpation or with range of motion throughout the remainder of the lower extremity, 5/5 muscle strength to extrinsic pedal muscle groups (-) evidence of compartment syndrome, (-) evidence of deep vein thrombosis. ASSESSMENT: Ingrown nail with paronychia LEFT HALLUX TREATMENT PLAN: -Extensive visit and patient agrees to treatment plan after thoroughly discussing risks, complciations, benefits, alternatives related to this ingrown nail. -Will start oral antibiotics prophylactically in attempts to treat the ingrown nail with conservative treatments before considering surgical intervention - Antibiotics - PRESCRIBED 05/17/2024 CLINDAmycin ( penicillin allergy) - Pain - controlled with over the counter Tylenol - Wound - Cleanse and bandage with triple antibiotic ointment, daily. Soak daily in Epsom salt, written and verbal instruction dispensed. - Culture - Due to lack of specimen, no culture could be obtained. - Imaging - Not indicated - Weight bearing - as tolerated in protected shoes. - Return in 1 week for INGROWN NAIL PROCEDURE Patient advised to report to my clinic or the emergency room immediately with any questions or concerns. Patient Instructions: Discussion: A detailed discussion was provided to the patient with specific reference to etiology, pathology, alternate treatment options, and prognosis. All risks and complications (including side effects) with each treatment/medication alternative were outlined in detail including but not limited to: Pain, swelling, numbness, loss of function, loss of limb, loss of life, bleeding, blood clot, embolism, hematoma, scarring, worsening of condition, failure to relieve condition, surgery, over/under correction from procedure, additional/revisional surgery, reflex sympathetic dystrophy, complex regional pain syndrome, reoccurrence of deformity, joint, stiffness, flail toe, bone and/or soft tissue infection, blood clots, pulmonary embolism, possible , delayed or non-healing. X-rays, graphs and drawings were all used to assist with patient comprehension when appropriate. All patients questions were answered and stated they fully understood. No guarantee as to results or outcome of treatment was made. I have discussed with the patient or legally responsible person prior to obtaining consent: the risks, potential benefits and drawbacks, significant alternatives, potential for problems related to recuperation, likelihood of success, and possible results of non-treatment, and the patient or the legally responsible person has agreed to proceed [facility]2025-01-06 14:04:57Upcoming Encounters Health Maintenance Due Date Last Done Comments Diabetes: Hemoglobin A1C 08/06/1944 Lipid Panel 08/06/1944 Annual Physical 1945 Pneumococcal Vaccine: 65+ Ye ars (1 of 2 - PCV) 08/06/1950 Diabetes: Foot Exam 08/06/1954 Diabetes: Retinopathy Screening 08/06/1954 DTaP/Tdap/Td Vaccines (1 - Tdap) 1963 Diabetes: Urine Protein Screening 1963 Zoster Vaccines (1 of 2) 08/06/1994 Respiratory Syncytial Virus (RSV) or >=60 (1 - 1-dose 75+ series) 2019 Influenza Vaccine (#1) 2024 HIB Vaccines Aged Out No longer eligi ble based on patient's age to complete this topic HPV Vaccines Aged Out No longer eligi ble based on patient's age to complete this topic Hepatitis A Vaccines Aged Out No long er eligible based on patient's age to complete this topic Hepatitis B Vaccines Aged Out No long er eligible based on patient's age to complete this topic IPV Vaccines Aged Out No longer eligi ble based on patient's age to complete this topic Meningococcal Vaccine Aged Out No peng lavelle eligible based on patient's age to complete this topic Rotavirus Vaccines Aged Out No longer eligible based on patient's age to complete this topic [facility] [id number] 14:04:57 Diagnosis Abnormal foot finding - Prim britt [facility] HospitalHcybpnm2033-15-17 14:04:57* Jason Baker, EMILIEM - 05/17/2024 1:10 PM [employer] CHIEF COMPLAINT: LEFT hallux nail ingrown. History of present illness: Patient states INGROWN NAIL, starting approximately May 10, 2024 Patient states he has been picking at the thick yellow irregular nail where the previous biopsy site had fully resolved Patient denies systemic signs of infection. Patient states pain is currently rated 2/10 on palpation, ingrown nail border OBJECTIVE PHYSICAL EXAM OF THE LOWER EXTREMITY: Vascular (+) edema, Localized to the ingrown nail border (-) erythema, Localized to the ingrown nail border (-) ecchymosis (+) 2/4 pedal pulses, bilateral (+) Capillary Refill time: within normal limits (-) varicosities (+) pedal hair growth. Neurological (+) sensation with 5.07 Bertram Kat monofilament examination to the most distal lower extremity (-) clonus present (-) tinel's sign. Dermatological (+) signs of soft tissue infection localized to the ingrown nail border, (+) paronychia (+) nails thick yellow irregular, left hallux (-) open wounds, (-) macerations, (-) ischemic tissue, (-) drainage/abscess (-) other primary or secondary lesions (+) normal temperature when compared to contralateral limb (+) normal color, tugor, and elasticity. Musculoskeletal (+) pain to ingrown nail border, (-) other pain on palpation or with range of motion throughout the remainder of the lower extremity, 5/5 muscle strength to extrinsic pedal muscle groups (-) evidence of compartment syndrome, (-) evidence of deep vein thrombosis. ASSESSMENT: Ingrown nail with paronychia LEFT HALLUX TREATMENT PLAN: -Extensive visit and patient agrees to treatment plan after thoroughly discussing risks, complciations, benefits, alternatives related to this ingrown nail. -Will start oral antibiotics prophylactically in attempts to treat the ingrown nail with conservative treatments before considering surgical intervention - Antibiotics - PRESCRIBED 05/17/2024 CLINDAmycin ( penicillin allergy) - Pain - controlled with over the counter Tylenol - Wound - Cleanse and bandage with triple antibiotic ointment, daily. Soak daily in Epsom salt, written and verbal instruction dispensed. - Culture - Due to lack of specimen, no culture could be obtained. - Imaging - Not indicated - Weight bearing - as tolerated in protected shoes. - Return in 1 week for INGROWN NAIL PROCEDURE Patient advised to report to my clinic or the emergency room immediately with any questions or concerns. Patient Instructions: Discussion: A detailed discussion was provided to the patient with specific reference to etiology, pathology, alternate treatment options, and prognosis. All risks and complications (including side effects) with each treatment/medication alternative were outlined in detail including but not limited to: Pain, swelling, numbness, loss of function, loss of limb, loss of life, bleeding, blood clot, embolism, hematoma, scarring, worsening of condition, failure to relieve condition, surgery, over/under correction from procedure, additional/revisional surgery, reflex sympathetic dystrophy, complex regional pain syndrome, reoccurrence of deformity, joint, stiffness, flail toe, bone and/or soft tissue infection, blood clots, pulmonary embolism, possible , delayed or non-healing. X-rays, graphs and drawings were all used to assist with patient comprehension when appropriate. All patients questions were answered and stated they fully understood. No guarantee as to results or outcome of treatment was made. I have discussed with the patient or legally responsible person prior to obtaining consent: the risks, potential benefits and drawbacks, significant alternatives, potential for problems related to recuperation, likelihood of success, and possible results of non-treatment, and the patient or the legally responsible person has agreed to proceed ANA [facility] [id number] 14:04:57Upcoming Encounters Health Maintenance Due Date Last Done Comments Diabetes: Hemoglobin A1C 08/06/1944 Lipid Panel 08/06/1944 Annual Physical 1945 Pneumococcal Vaccine: 65+ Ye ars (1 of 2 - PCV) 08/06/1950 Diabetes: Foot Exam 08/06/1954 Diabetes: Retinopathy Screening 08/06/1954 DTaP/Tdap/Td Vaccines (1 - Tdap) 1963 Diabetes: Urine Protein Screening 1963 Zoster Vaccines (1 of 2) 08/06/1994 Respiratory Syncytial Virus (RSV) or >=60 (1 - 1-dose 75+ series) 2019 Influenza Vaccine (#1) 2024 HIB Vaccines Aged Out No longer eligi ble based on patient's age to complete this topic HPV Vaccines Aged Out No longer eligi ble based on patient's age to complete this topic Hepatitis A Vaccines Aged Out No long er eligible based on patient's age to complete this topic Hepatitis B Vaccines Aged Out No long er eligible based on patient's age to complete this topic IPV Vaccines Aged Out No longer eligi ble based on patient's age to complete this topic Meningococcal Vaccine Aged Out No peng lavelle eligible based on patient's age to complete this topic Rotavirus Vaccines Aged Out No longer eligible based on patient's age to complete this topic [facility] [id number] 14:04:57 Diagnosis Abnormal foot finding - Prim britt [facility] [id number] 14:27:10Scheduled Orders Health Maintenance Due Date Last Done Comments Lipid Panel 08/06/1942 Annual Physical 1945 DTaP/Tdap/Td Vaccines (1 - Tdap) 1963 Zoster Vaccines (1 of 2) 08/06/1994 Pneumococcal Vaccine: 65+ Ye ars (1 of 1 - PCV) 08/06/2009 Respiratory Syncytial Virus (RSV) or >=60 (1 - 1-dose 75+ series) 2019 Influenza Vaccine (#1) 2024 HIB Vaccines Aged Out No longer eligi ble based on patient's age to complete this topic HPV Vaccines Aged Out No longer eligi ble based on patient's age to complete this topic Hepatitis A Vaccines Aged Out No long er eligible based on patient's age to complete this topic Hepatitis B Vaccines Aged Out No long er eligible based on patient's age to complete this topic IPV Vaccines Aged Out No longer eligi ble based on patient's age to complete this topic Meningococcal Vaccine Aged Out No peng lavelle eligible based on patient's age to complete this topic Rotavirus Vaccines Aged Out No longer eligible based on patient's age to complete this topic [place] [id number] 14:27:10 Diagnosis Onychomycosis - Primary Dermatophytosis of nail Abnormal foot finding [place] [id number] 14:27:10* Jason Baker, [facility] - 04/12/2024 1:40 PM [employer] CHIEF COMPLAINT: NAIL BIOPSY, LEFT HALLUX [facility] HISTORY OF PRESENT ILLNESS: Patient requesting evaluation of the lower extremity to help reduce chances of complications in the lower extremity due to multiple high risk comorbidities Patient states nails are painful, thick, and elongated. Patient requesting nail biopsy to help determine the cause for the irregular nail Patient denies pain, infection, injury, open wounds Patient states most recent fasting blood sugar was tested this morning with a value of 179 mg/dl. OBJECTIVE: PHYSICAL EXAM OF THE LOWER EXTREMITY VASCULAR: (+) 1/4 pitting edema symmetrical to bilateral lower extremity (-) ecchymosis (-) erythema 2/4 Dorsal pedis pulse, bilateral 2/4 Posterior tibial pulse, bilateral (+) normal Capillary Refill time (+) varicosities, (-) pedal hair growth NEUROLOGICAL: (-) sensation with 5.07 Bertram Kat monofilament examination to the most distal lower extremity (-) tinel's sign (-) clonus present (+) normal response to hot, cold, sharp, blunted and vibratory sensations DERMATOLOGICAL: (+) Nails are thick, yellow, elongated. Debrided without complications (-) open wounds (-) signs of infection (-) ischemic tissue (-) macerations (-) abscess (+) normal temperature when compared to contralateral limb (+) normal color, tugor, and elasticity MUSCULOSKELETAL: (-) pain on palpation, BILATERAL lower extremity (+) Semi-rigid hammertoe deformities, BILATERAL (-) other gross osseous abnormalities 5/5 muscle strength to extrinsic pedal muscle groups (-) evidence of compartment syndrome (-) evidence of deep vein thrombosis ASSESSMENT: Paronychia, nails 1-10 Onychomycosis, bilateral feet --- Diabetes type 2 with neuropathy Multiple co-morbidities PLAN: - Extensive office visit discussing possible pedal complications associated with high risk co-morbidities - Nails - debrided without complications - NAIL BIOPSY - OBTAINED 04/12, LEFT HALLUX with sharp instruments, no open wounds thus no bandage necessary. Biopsy necessary to help determine the underlying pathogen for the thick, yellow, irregular nail shape. - Medication - moisturize feet daily to help prevent ulcerations and xerosis - Vascular - no further intervention indicated palpable pedal pulses, no open wounds, no ischemic tissue. - Edema - compression stockings advised - Shoes - patient educated to obtain appropriate shoes with custom inserts - Diabetic management - significant time discussing and educating the patient about appropriate diabetic management and care for the lower extremity. Patient also advised to follow-up with detailed regimen with PCP - Return 4 weeks for routine pedal care Patient advised to report to my clinic or the emergency room immediately with any questions or concerns. Patient Instructions: Discussion: A detailed discussion was provided to the patient with specific reference to etiology, pathology, alternate treatment options, and prognosis. All risks and complications (including side effects) with each treatment/medication alternative were outlined in detail including but not limited to: Pain, swelling, numbness,loss of function, loss of limb, bleeding, hematoma, scarring, failure to relieve condition, surgery, additional/revisional surgery, reflex sympathetic dystrophy, complex regional pain syndrome, reoccurrence of deformity, joint stiffness, flail toe, bone and/or soft tissue infection, blood clots, pulmonary embolism, possible ,delayed or non-healing. X-rays, graphs and drawings were all used to assist with patient comprehension when appropriate. All patients questions were answered and stated they fully understood. No guarantee as to results or outcome of treatment was made. I have discussed with the patient or legally responsible person prior to obtaining consent: the risks, potential benefits and drawbacks, significant alternatives, potential for problems related to recuperation, likelihood of success, and possible results of non-treatment, and the patient or the legally responsible person has agreed to proceed. ANA Miles
[2024-06-30] MEDS ORDERED: PANTOPRAZOLE 40 MG INJ ONE (16:27)
[2024-06-30 16:35] LABS: Absolute Eosinophils 0.1 K/uL (0-0.5); Absolute Lymphocytes (CBC) 1.3 K/uL (0.7-4.9); Absolute Monocytes 0.6 K/uL (0.1-1.3); Basophils % 0.6 % (0-1.3); Hematocrit 38.3 % (39.6-49.0); Hemoglobin 13.1 g/dL (13.6-17.9); Lymphocytes % 18.1 % (15.3-44.8); MCH 33.3 pg (27.0-35.0); MCHC 34.2 g/dL (32.0-36.0); MCV 97.5 fL (80-100); MPV 7.8 fL (7.6-11.3); Monocytes % 8.6 % (3.3-12.3); Neutrophils % 70.7 % (41.7-73.7); Nucleated Red Blood Cells % 0.1 % (0-0); Platelets 284 thou/uL (152-406); RBC Red Blood Cell Count 3.93 M/uL (4.33-5.43); Red Cell Distribution Width 14.1 % (12.1-15.2)
--- NOTE | 2024-06-30 16:50 | RAD REPORT ---
EXAM: CT CHEST WITH CONTRAST CLINICAL INDICATION: chest pain, difficulty swallowing TECHNIQUE: Routine CT scan of the chest with intravenous contrast. One or more of the following dose reduction techniques were used: Automated exposure control, adjustment of the mA and/or kV according to patient size, and/or iterative reconstruction. Unless otherwise specified, incidental fi ndings do not require dedicated imaging follow-up. COMPARISON: 04/27/2024 FINDINGS: LUNGS: Airways are clear. No evidence of airspace or interstitial process. No nodules. PLEURA: No pleural effusion. No pneumothorax. MEDIASTINUM AND LYMPH NODES: No mediastinal mass or fluid collection. Normal size mediastinal, hilar, and axillary lymph nodes. Small hiatal hernia with narrowing of the distal esophagus seen wall thickening. There is an oblong 2 cm indeterminant intraluminal material in the distal esophagus. Foll ow-up upper endoscopy would be suggested. OSSEOUS STRUCTURES AND CHEST WALL: Intact. UPPER ABDOMEN: Cholelithiasis. IMPRESSION: 2 cm oblong indeterminate structure seen in the distal esophagus, potentially impacted ingested mater ial. There is mild fluid seen more proximally in the mildly distended esophagus. Upper endoscopy suggested for follow-up.
[2024-06-30 16:53] LABS: Albumin 3.9 g/dL (3.4-5.0); Albumin/Globulin Ratio 1.1 (1.1-1.8); Anion Gap 9.1 mEq/L (5.0-15.0); Bilirubin Direct 0.2 mg/dL (0-0.2); Bilirubin Indirect, Calculated 0.7 mg/dL (0.2-0.8); Bilirubin Total 0.9 mg/dL (0.2-1.0); Globulin 3.4 g/dL (2.3-3.5); Potassium 4.1 mEq/L (3.5-5.1); Protein, Total 7.3 g/dL (6.4-8.2)
[2024-06-30] MEDS ORDERED: dexAMETHasone 10 MG/ML VIAL ONE (17:15)
[2024-06-30] MEDS ORDERED: MAGNESIUM SULFATE 1 gm IVPB 1 GM/100 ML BAG IV ONE (17:18)
[2024-06-30] MEDS ORDERED: GLUCAGON 1 MG/VIAL ONE (17:19)
--- NOTE | 2024-06-30 17:27 | EDPHYS ---
Physician Documentation [facility] Name: Martin Santa Age: 78 yrs Sex: Male : 1945 Arrival Date: 06/30/2024 Time: 15:20 Bed 12 Private MD: ED Physician Charles Sheriff HPI: 06/30 15:41 This 78 yrs old Male presents to ER via Ambulatory with complaints of Difficulty rn Swallowing, Epigastric Pain. 15:41 The patient presents with dysphagia, Unable to swallow liquids or solids. Onset: The rn symptoms/episode began/occurred today. Modifying factors: The symptoms are alleviated by nothing, the symptoms are aggravated by fluids, swallowing. Associated signs and symptoms: Pertinent positives: vomiting. The patient has experienced similar episodes in the past. Patient reports has had esophageal problems in the past, requiring esophageal dilatation. Had breakfast without trouble swallowing but later in the day took his pills then had trouble swallowing even liquids. Has thrown up 2 or 3 times this afternoon and does not feel like anything is passing. Just had upper scope 2 weeks ago that showed gastritis but did not require dilatation at that time. No fever or chills. No shortness of breath.. Historical: - Allergies: 15:34 PENICILLINS; ll1 - PMHx: 15:34 Asthma; CHF; Diabetes - NIDDM; heart arrhythmia; High Cholesterol; Hypertension; Leaky ll1 heart valves; - Immunization history:: Adult Immunizations up to date. - Social history:: Smoking status: Patient denies any tobacco usage or history of. - Family history:: not pertinent. - Hospitalizations: : No recent hospitalization is reported. ROS: 15:41 Constitutional: Negative for fever, chills, and weight loss, ENT: Positive for rn difficulty swallowing Cardiovascular: Negative for chest pain, palpitations, and edema, Respiratory: Negative for shortness of breath, cough, wheezing, and pleuritic chest pain, Abdomen/GI: Positive for vomiting and unable to swallow MS/Extremity: Negative for injury and deformity, Skin: Negative for injury, rash, and discoloration, Neuro: Negative for headache, weakness, numbness, tingling, and seizure, Exam: 15:41 Constitutional: This is a well developed, well nourished patient who is awake, alert, rn and in no acute distress. ENT: No stridor Cardiovascular: Regular rate and rhythm. No pulse deficits. Respiratory: No increased work of breathing, no retractions or nasal flaring. Abdomen/GI: Soft, nontender Vital Signs: 15:35 BP 122 / 65; Pulse 68; Resp 16; Temp 97.4; Pulse Ox 100% ; Weight 90.72 kg; Height 5 ll1 ft. 10 in. ; 17:33 BP 146 / 71; Pulse 76; Resp 16; Pulse Ox 100% on R/A; jb4 19:00 BP 123 / 70; Pulse 85; Resp 16; Pulse Ox 100% ; jb4 20:17 BP 141 / 80; Pulse 65; Resp 16; Pulse Ox 98% on R/A; jb4 15:35 Body Mass Index 28.70 (90.72 kg, 177.8 cm) ll1 MDM: 15:24 Medical Screening Exam initiated rn 17:24 Differential diagnosis: Esophageal impaction, esophagitis, stricture. Data reviewed: rn vital signs, nurses notes, lab test result(s), radiologic studies, CT scan, and as a result, I will admit patient. Consideration of Admission/Observation Patient was admitted/placed on observation. Escalation of care including admission/observation considered. Counseling: I had a detailed discussion with the patient and/or guardian regarding the historical points, exam findings, and any diagnostic results supporting the discharge/admit diagnosis, lab results, radiology results, the need to transfer to another facility, [facility] does not immediately have the required specialist. ED course: Patient with esophageal impaction, do not have GI here, will transfer for GI evaluation and likely scope. 18:01 ED course: Patient declines transfer to [facility]. Patient requested transfer rn to [facility] [place] [place] where his GI doctor is. Transfer initiated.. 18:25 ED course: Patient attempted to drink a small amount of water and unable to tolerate, rn began immediately throwing up. Has not been able to tolerate p.o. since lunchtime. [facility] [place] [place] unable to accommodate transfer. Initiated transfer to [facility] per patient's request.. 06/30 15:34 Order name: Basic Metabolic Panel; Complete Time: 17:11 ll1 06/30 15:34 Order name: CBC with Diff; Complete Time: 16:47 1 06/30 15:34 Order name: LFT's; Complete Time: 17:11 1 06/30 15:34 Order name: CT Chest W/ Con; Complete Time: 17:11 1 06/30 15:34 Order name: IV Saline Lock; Complete Time: 16:22 1 06/30 15:34 Order name: Labs collected and sent; Complete Time: 16:23 1 06/30 15:34 Order name: O2 Per Protocol; Complete Time: 16:18 1 06/30 15:34 Order name: O2 Sat Monitoring; Complete Time: 16:18 ll1 Administered Medications: 16:45 Drug: Pantoprazole IVP 40 mg IVP once Route: IVP; Site: left antecubital; iw 17:30 Follow up: Response: No adverse reaction jb4 17:26 Drug: Decadron - Dexamethasone IVP 10 mg IVP once Route: IVP; Site: left forearm; jb4 18:00 Follow up: Response: No adverse reaction; Marked relief of symptoms jb4 17:27 Drug: Glucagon IVP 1 mg IVP once Route: IVP; Site: left forearm; jb4 18:00 Follow up: Response: No adverse reaction; Marked relief of symptoms jb4 17:33 Drug: Magnesium Sulfate IVPB 1 grams IVPB once over 1 hrs Route: IVPB; Infused Over: 1 jb4 hrs; Site: left forearm; 18:33 Follow up: Response: No adverse reaction; IV Status: Completed infusion; IV Intake: jb4 100ml Disposition Summary: 06/30/24 17:27 Transfer Ordered Notes: Reason: Higher level of care rn Condition: Stable rn Problem: new rn 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 Justin(06/30/24 20:20) jb4 Diagnosis - Esopagheal impaction rn Forms: - Medication Reconciliation Form rn - SBAR form rn Signatures: Dispatcher [employer] Ophelia James RN RN iw Nieto, Roman, MD MD rn Bryson, James, RN RN jb4 Jones Jaquez RN RN ll1 Justina Leyva rv1 Corrections: (The following items were deleted from the chart) 15:36 15:34 Social history: Smoking status: Patient/guardian denies using tobacco, [facility] 17:16 15:34 Cardiac monitoring ordered. [facility] jb4 17:16 15:34 EKG - Nurse/Tech ordered. [facility] jb4 17:27 Dr. plata rv1 17:27 [facility] rn rv1 20:20 19:30 Dr. Justin 1 jb4
--- NOTE | 2024-06-30 17:27 | ER ---
Nurse's Notes [facility] Name: Martin Santa Age: 78 yrs Sex: Male : 1945 Arrival Date: 06/30/2024 Time: 15:20 Bed 12 Private MD: Diagnosis: Esopagheal impaction Presentation: 06/30 15:35 Chief complaint: Patient states: Epigastric pain, increased acid, N/V, cannot swallow ll1 foods easily. Last scope 2 weeks ago, results in hand. Coronavirus screen: Client denies travel out of the [place] in the last 14 days. At this time, the client does not indicate any symptoms associated with coronavirus-19. Ebola Screen: Patient denies travel to an Ebola-affected area in the 21 days before illness onset. Initial Sepsis Screen: Does the patient meet any 2 criteria? No. Patient's initial sepsis screen is negative. Does the patient have a suspected source of infection? No. Patient's initial sepsis screen is negative. Risk Assessment: Do you want to hurt yourself or someone else? Patient reports no desire to harm self or others. Onset of symptoms was June 30, 2024. 15:35 Method Of Arrival: Ambulatory ll1 15:35 Acuity: ODILIA 3 ll1 Historical: - Allergies: 15:34 PENICILLINS; ll1 - PMHx: 15:34 Asthma; CHF; Diabetes - NIDDM; heart arrhythmia; High Cholesterol; Hypertension; Leaky ll1 heart valves; - Immunization history:: Adult Immunizations up to date. - Social history:: Smoking status: Patient denies any tobacco usage or history of. - Family history:: not pertinent. - Hospitalizations: : No recent hospitalization is reported. Screenin:17 [facility] ED Fall Risk Assessment (Adult) History of falling in the last 3 months, jb4 including since admission No falls in past 3 months (0 pts) Confusion or Disorientation No (0 pts) Intoxicated or Sedated No (0 pts) Impaired Gait No (0 pts) Mobility Assist Device Used Yes (1 pt) Altered Elimination No (0 pt) Score/Fall Risk Level 0 - 2 = Low Risk Oriented to surroundings, Maintained a safe environment. Abuse screen: Denies threats or abuse. Nutritional screening: No deficits noted. Tuberculosis screening: No symptoms or risk factors identified. Assessment: 16:15 General: Appears in no apparent distress. uncomfortable, Behavior is calm, cooperative, jb4 appropriate for age. Pain: Complains of pain in diaphragm Pain does not radiate. Pain currently is 8 out of 10 on a pain scale. Neuro: Level of Consciousness is awake, alert, obeys commands, Oriented to person, place, time, situation. Cardiovascular: Patient's skin is warm and dry. Respiratory: Airway is patent Respiratory effort is even, unlabored, Respiratory pattern is regular, symmetrical. GI: Abdomen is flat, non-distended, Pt is actively vomiting clear fluid. Derm: Skin is intact, Skin is pink, warm \T\ dry. 17:33 Reassessment: Patient appears in no apparent distress at this time. Patient and/or jb4 family updated on plan of care and expected duration. Pain level reassessed. Patient is alert, oriented x 3, equal unlabored respirations, skin warm/dry/pink. 19:00 Reassessment: Patient appears in no apparent distress at this time. Patient and/or jb4 family updated on plan of care and expected duration. Pain level reassessed. Patient is alert, oriented x 3, equal unlabored respirations, skin warm/dry/pink. 20:17 Reassessment: Patient appears in no apparent distress at this time. Patient and/or jb4 family updated on plan of care and expected duration. Pain level reassessed. Patient is alert, oriented x 3, equal unlabored respirations, skin warm/dry/pink. Vital Signs: 15:35 BP 122 / 65; Pulse 68; Resp 16; Temp 97.4; Pulse Ox 100% ; Weight 90.72 kg; Height 5 ll1 ft. 10 in. ; 17:33 BP 146 / 71; Pulse 76; Resp 16; Pulse Ox 100% on R/A; jb4 19:00 BP 123 / 70; Pulse 85; Resp 16; Pulse Ox 100% ; jb4 20:17 BP 141 / 80; Pulse 65; Resp 16; Pulse Ox 98% on R/A; jb4 15:35 Body Mass Index 28.70 (90.72 kg, 177.8 cm) ll1 ED Course: 15:23 Patient arrived in ED. im 15:24 Charles Sheriff MD is Attending Physician. rn 15:36 Triage completed. ll1 15:36 Arm band placed on. ll1 16:14 Radiology exam delayed due to lab results not completed at this time. (BUN/Creatinine) nj IV insertion attempt and/or patient not having appropriate IV at this time. 16:39 CT Chest W/ Con In Process Unspecified. EDMS 17:30 initiated transfer to [facility],as requested by patient,( pt [facility] a [facility]). 17:44 Martin Smith, HAILEY is Primary Nurse. jb4 18:06 pt denied at [facility] due to no beds at this time per angeline. bd 18:12 initiated transfer to [facility]. bd 20:17 Patient has correct armband on for positive identification. Bed in low position. Call jb4 light in reach. Side rails up X 1. Provided Education on: discharge need for transfer. 20:17 No provider procedures requiring assistance completed. Patient transferred, IV remains jb4 in place. Administered Medications: 16:45 Drug: Pantoprazole IVP 40 mg IVP once Route: IVP; Site: left antecubital; iw 17:30 Follow up: Response: No adverse reaction jb4 17:26 Drug: Decadron - Dexamethasone IVP 10 mg IVP once Route: IVP; Site: left forearm; jb4 18:00 Follow up: Response: No adverse reaction; Marked relief of symptoms jb4 17:27 Drug: Glucagon IVP 1 mg IVP once Route: IVP; Site: left forearm; jb4 18:00 Follow up: Response: No adverse reaction; Marked relief of symptoms jb4 17:33 Drug: Magnesium Sulfate IVPB 1 grams IVPB once over 1 hrs Route: IVPB; Infused Over: 1 jb4 hrs; Site: left forearm; 18:33 Follow up: Response: No adverse reaction; IV Status: Completed infusion; IV Intake: jb4 100ml Medication: 20:17 VIS not applicable for this client. jb4 Intake: 18:33 IV: 100ml; Total: 100ml. jb4 Outcome: 17:27 ER care complete, transfer ordered by MD. plata 20:17 Transferred by ground EMS to [facility], Transfer form jb4 completed. X-rays sent w/ patient. 20:17 Condition: stable 20:17 Discharge instructions given to patient, Instructed on the need for transfer, Demonstrated understanding of instructions, 20:20 Patient left the ED. jb4 Signatures: Dispatcher [employer] Janeen Goel Irene, RN RN Charles Berman MD MD rn Bryson, James, RN RN jb4 Zay Lynn Lynsay, RN RN ll1 Rhonda Tejada Corrections: (The following items were deleted from the chart) 15:36 15:34 Social history: Smoking status: Patient/guardian denies using tobacco, 1 1
== END 2024-06-30 20:20 | disposition short-term general hospital (02) ==
LOC: ER 15:20
DX: T18.128A Food in esophagus causing other injury, initial encounter (principal); R10.13 Epigastric pain; R11.10 Vomiting, unspecified
CPT/HCPCS: 85025; 80048; 36415; 80076; 71260; Q9967; J1610; J3475; J2470; J1100; 82565